=== PATIENT | female | born 1960 | race Caucasian/White ===

== ENCOUNTER 2017-06-16 19:20 | Emergency (ER) | payer SELFPAY ==
[~2017-06-16] VITALS: Ht 172.7 cm; Wt 109.3 kg
[2017-06-16] MEDS ORDERED: TIZA4CAP3 PO (19:59)
[2017-06-16] MEDS ORDERED: ONDA8TAB12 PO (19:59)
[2017-06-16] MEDS ORDERED: ORPHENADRINE CITRATE 60 MG/2 ML VIAL. IM ONE (20:00)
[2017-06-16] MEDS ORDERED: ONDANSETRON ODT 4 MG TAB.RAPDIS PO ONE (20:00)
--- NOTE | 2017-06-16 20:00 | PHYS DOC ---
Past History Past Medical History: Anxiety, Fibromyalgia Additional Past Medical Histor: Lyme's disease; fibromyalgia, diverticulitis Past Surgical History: Appendectomy, Hysterectomy, Tonsillectomy Smoking: Non-smoker, Quit Less Than 1 Year Alcohol Use: Rarely Drug Use: None Adult General Chief Complaint Chief Complaint: MULTIPLE COMPLAINTS HPI HPI Patient is a 56 year old female who presents with multiple complaints. The main complaint is mid back pain. Started today at 1700 PM. She has been "under a lot of stress" recently and moving her daughter. She was moving her daughter today when this pain started. No shortness of air, no fever, no cough. no chest pain. No abdominal pain. She had an episode just prior to arrival where "I became nauseated and then had stomach cramping and diarrhea.' She is dealing with "new colon issues so I don't know if it's related to that." No recent travel. No syncope or dizziness. Review of Systems Review of Systems Constitutional: Denies fever or chills Eyes: Denies change in visual acuity, redness, or eye pain HENT: Denies nasal congestion or sore throat Respiratory: Denies cough or shortness of breath Cardiovascular: No chest pain GI: Denies abdominal pain, POS nausea, NO vomiting, bloody stools; POS diarrhea x1 : Denies dysuria or hematuria Musculoskeletal: POS thoracic back pain; chronic joint pain Integument: Denies rash or skin lesions Neurologic: Denies headache, focal weakness or sensory changes All other systems were reviewed and found to be within normal limits, except as documented in this note. Current Medications Current Medications Current Medications Medications (Trade) Dose Ordered Sig/[facility] Start Time Stop Time Status Last Admin Dose Admin Ondansetron HCl (Zofran Odt) 4 mg 1X ONCE 06/16/17 20:00 06/16/17 20:01 Orphenadrine Citrate (Norflex) 60 mg 1X ONCE 06/16/17 20:00 06/16/17 20:01 Allergies Allergies Allergies Coded Allergies Type Severity Reaction Last Updated Verified Nitrofurantoin Macrocrystal Allergy Unknown 11/02/13 Yes guaifenesin Allergy Unknown 11/02/13 Yes hydromorphone HCl Allergy Unknown 11/02/13 Yes morphine Allergy Unknown 11/02/13 Yes nitrofurantoin Allergy Unknown 11/02/13 Yes paroxetine HCl Allergy Unknown 11/02/13 Yes Physical Exam Physical Exam Constitutional: Well developed, well nourished, no acute distress, non-toxic appearance. HENT: Normocephalic, atraumatic, bilateral external ears normal, oropharynx moist, no oral exudates, nose normal. Eyes: PERRLA, EOMI, conjunctiva normal, no discharge. Neck: Normal range of motion, no tenderness, supple, no stridor. Cardiovascular:Heart rate regular rhythm, no murmur Lungs & Thorax: Bilateral breath sounds clear to auscultation Abdomen: Bowel sounds normal, soft, no tenderness, no masses, no pulsatile masses. Skin: Warm, dry, no erythema, no rash. Back: POS tenderness along bilateral trapezius area and parathoracic muscle area ; no pinpoint tenderness to thoracic spine, no CVA tenderness. Extremities: No tenderness, no cyanosis, no clubbing, ROM intact, no edema. Neurologic: Alert and oriented X 3, normal motor function, normal sensory function, no focal deficits noted. Psychologic: Affect normal, judgement normal, mood normal. Current Patient Data Vital Signs Vital Signs Date Time Temp Pulse Resp B/P (MAP) Pulse Ox O2 Delivery O2 Flow Rate FiO2 06/16/17 19:33 98.2 96 18 96 EKG EKG EKG interpreted by myself at 1742 PM with NSR, Rate 78, non specific ST changes ; no STEMI. No change compared to EKG dated 11/02/16. Course & Med Decision Making Course & Med Decision Making Reviewed prior records. Evaluated patient. No evidence of acute cardiac event this time. Patient's findings are consistent with a thoracic muscle strain. Her diarrhea and nausea she states might just be related to her underlying bowel issues for which she stealing some extensive dietary changes to manage. Again she is under a lot of stress as well with family members so can be related to that as well she states. She did take an aspirin earlier "just to be safe". Again has had no other respiratory symptoms. Her blood pressures elevated here which he has been in the past visits. She states that happens when she gets under stress. She states she has a rechecked in the office it is "always normal ". However did advise her to have her blood pressure rechecked as it is borderline and your her personal physician deems it necessary she may need further evaluation on that. Dosed with Norflex IM here and Zofran ODT. She does not have any muscle relaxers at home to take. Will have her try outpatient muscle relaxers if obviously no change in his symptoms or worsening symptoms she is reevaluation immediately. PERC Criteria Assessment: Age > 50: YES HR > 100: No 02 < 95%: No H/o DVT/PE: No Recent trauma/surgery: No Hemoptysis No Exogenous Estrogen: No Unilateral Leg swelling: No Pretest probability > 15%: No Less than 2% risk of PE. No further work up is necessary; her only criteria is age. I have spoken with the patient and/or caregivers. I have explained the patient' s condition, diagnosis and treatment plan based on the information available to me at this time. I have answered the patient's and/or caregiver's questions and addressed any concerns. The patient and/or caregivers have as good an understanding of the patient's diagnosis, condition and treatment plan as can be expected at this point. The patient's condition is stable and appropriate for discharge from the emergency department. The patient will pursue further outpatient evaluation with the primary care physician or other designated or consulting physician as outlined in the discharge instructions. The patient and/or caregivers are agreeable to this plan of care and follow-up instructions have been explained in detail. The patient and/or caregivers have received these instructions in written format and have expressed an understanding of the discharge instructions. The patient and/or caregivers are aware that any significant change in condition or worsening of symptoms should prompt an immediate return to this or the closest emergency department or a call to 911. Taryn Disclaimer Dragon Disclaimer This electronic medical record was generated, in whole or in part, using a voice recognition dictation system. Departure Departure: Impression: Primary Impression: Acute thoracic myofascial strain Disposition: HOME, SELF-CARE Condition: STABLE Patient Instructions: Thoracic Strain Additional Instructions: Your blood pressure was slightly elevated here. You need to have you blood pressure reevaluated in 24-48 hrs. by you personal physician. If you develop any new symptoms or change in symptoms associated with you current complaint you need reevaluation immediately. Scripts Tizanidine Hcl (ZANAFLEX) 4 Mg Capsule 4 MG PO PRN Q8HRS Y for MUSCLE SPASMS, #20 CAP Prov: RONALD JOE MD 06/16/17 Ondansetron (ZOFRAN ODT) 8 Mg Tab.rapdis 8 MG PO Q6-8HRS, #10 Prov: RONALD JOE MD 06/16/17 Problem Qualifiers Primary Impression: Acute thoracic myofascial strain Encounter type: initial encounter Qualified Codes: S29.019A - Strain of muscle and tendon of unspecified wall of thorax, initial encounter RONALD JOE MD Jun 16, 2017 20:00
[2017-06-16 20:07] VITALS: BP 161/54
--- NOTE | 2017-06-17 00:47 | EKG ---
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
== END 2017-06-16 20:08 | disposition home or self-care (01) ==
LOC: ER 19:20
DX: S29.012A Strain of muscle and tendon of back wall of thorax, initial encounter (principal); M79.7 Fibromyalgia; F41.9 Anxiety disorder, unspecified; R19.7 Diarrhea, unspecified; Z87.891 Personal history of nicotine dependence; Z88.5 Allergy status to narcotic agent; Z88.8 Allergy status to other drugs, medicaments and biological substances; X58.XXXA Exposure to other specified factors, initial encounter; Y93.89 Activity, other specified; Y99.8 Other external cause status; Y92.89 Other specified places as the place of occurrence of the external cause
CPT/HCPCS: 93005; 96372; 99283; J2360; Q0162

== ENCOUNTER 2017-06-22 10:21 | Inpatient (IN) | payer SELFPAY ==
[~2017-06-22] VITALS: Ht 172.7 cm; Wt 124.3 kg
[~2017-06-22 10:21] MED LIST: ONDA8TAB12 PO; TIZA4CAP3 PO
--- NOTE | 2017-06-22 10:44 | PHYS DOC ---
Past History Past Medical History: Anxiety, Fibromyalgia Additional Past Medical Histor: Lyme's disease; fibromyalgia, diverticulitis Past Surgical History: Appendectomy, Hysterectomy, Tonsillectomy Smoking: Non-smoker, Quit Less Than 1 Year Alcohol Use: Rarely Drug Use: None Adult General Chief Complaint Chief Complaint: DIARRHEA HPI HPI Patient is a 56 year old F who presents with profuse watery diarrhea over the past 2 weeks. She states that she is having multiple bowel movements an hour and feels that it is particularly foul-smelling. She feels that her diarrhea is associated with mild abdominal cramping is worse with movement and palpation. She has had mild nausea and occasional vomiting however she has been a little hold down liquids. She has a history of diverticulitis which was diagnosed initially about 4 months ago. She states that she has moderate generalized weakness and is unable to do some of her normal daily tasks Review of Systems Review of Systems Constitutional: Negative except history of present illness Eyes: Denies change in visual acuity, redness, or eye pain [] HENT: Denies nasal congestion or sore throat [] Respiratory: Denies cough or shortness of breath [] Cardiovascular: No additional information not addressed in HPI [] GI: Negative except history of present illness : Denies dysuria or hematuria [] Musculoskeletal: Denies back pain or joint pain [] Integument: Denies rash or skin lesions [] Neurologic: Denies headache, focal weakness or sensory changes [] Endocrine: Denies polyuria or polydipsia [] All other systems were reviewed and found to be within normal limits, except as documented in this note. Family History Family History Noncontributory Current Medications Current Medications Medications reviewed Allergies Allergies Allergies Coded Allergies Type Severity Reaction Last Updated Verified Nitrofurantoin Macrocrystal Allergy Unknown 11/02/13 Yes guaifenesin Allergy Unknown 11/02/13 Yes hydromorphone HCl Allergy Unknown 11/02/13 Yes morphine Allergy Unknown 11/02/13 Yes nitrofurantoin Allergy Unknown 11/02/13 Yes paroxetine HCl Allergy Unknown 11/02/13 Yes Physical Exam Physical Exam Constitutional: Well developed, well nourished, no acute distress, non-toxic appearance. [] HENT: Normocephalic, atraumatic, bilateral external ears normal, oropharynx moist, no oral exudates, nose normal. [] Eyes: EOMI, conjunctiva normal, no discharge. [] Neck: Normal range of motion, no tenderness, supple, no stridor. [] Cardiovascular:Heart rate regular rhythm, no murmur [] Lungs & Thorax: Bilateral breath sounds clear to auscultation [] Abdomen: soft, no masses, no pulsatile masses. [] Mild generalized tenderness with hyperactive bowel sounds Skin: Warm, dry, no erythema, no rash. [] Back: No tenderness, no CVA tenderness. [] Extremities: No tenderness, no cyanosis, no clubbing, ROM intact, no edema. [] Neurologic: Alert and oriented X 3, normal motor function, normal sensory function, no focal deficits noted. [] Psychologic: Affect normal, judgement normal, mood normal. [] Current Patient Data Vital Signs Vital Signs Date Time Temp Pulse Resp B/P (MAP) Pulse Ox O2 Delivery O2 Flow Rate FiO2 06/22/17 10:34 98.1 88 22 96 Room Air Lab Results Laboratory Tests Test 06/22/17 11:04 White Blood Count 21.6 x10^3/uL (4.0-11.0) Red Blood Count 5.72 x10^6/uL (3.50-5.40) Hemoglobin 15.8 g/dL (12.0-15.5) Hematocrit 47.4 % (36.0-47.0) Mean Corpuscular Volume 83 fL (79-100) Mean Corpuscular Hemoglobin 28 pg (25-35) Mean Corpuscular Hemoglobin Concent 33 g/dL (31-37) Red Cell Distribution Width 13.6 % (11.5-14.5) Platelet Count 309 x10^3/uL (140-400) Neutrophils (%) (Auto) 51 % (31-73) Lymphocytes (%) (Auto) 12 % (24-48) Monocytes (%) (Auto) 4 % (0-9) Eosinophils (%) (Auto) 33 % (0-3) Basophils (%) (Auto) 1 % (0-3) Neutrophils # (Auto) 11.0 x10^3uL (1.8-7.7) Lymphocytes # (Auto) 2.6 x10^3/uL (1.0-4.8) Monocytes # (Auto) 0.8 x10^3/uL (0.0-1.1) Eosinophils # (Auto) 7.2 x10^3/uL (0.0-0.7) Basophils # (Auto) 0.1 x10^3/uL (0.0-0.2) Segmented Neutrophils % 48 % (35-66) Lymphocytes % 16 % (24-48) Monocytes % 5 % (0-10) Eosinophils % 25 % (0-5) Basophils % 1 % (0-3) Platelet Estimate Adequate (ADEQUATE) Sodium Level 140 mmol/L (136-145) Potassium Level 4.3 mmol/L (3.5-5.1) Chloride Level 103 mmol/L (98-107) Carbon Dioxide Level 30 mmol/L (21-32) Anion Gap 7 (6-14) Blood Urea Nitrogen 7 mg/dL (7-20) Creatinine 0.9 mg/dL (0.6-1.0) Estimated GFR (Cockcroft-Gault) 65.0 BUN/Creatinine Ratio 8 (6-20) Glucose Level 111 mg/dL (70-99) Calcium Level 9.7 mg/dL (8.5-10.1) Magnesium Level 2.1 mg/dL (1.8-2.4) Total Bilirubin 0.5 mg/dL (0.2-1.0) Aspartate Amino Transf (AST/SGOT) 22 U/L (15-37) Alanine Aminotransferase (ALT/SGPT) 28 U/L (14-59) Alkaline Phosphatase 158 U/L (46-116) Total Protein 7.5 g/dL (6.4-8.2) Albumin 3.9 g/dL (3.4-5.0) Albumin/Globulin Ratio 1.1 (1.0-1.7) Lipase 69 U/L (73-393) EKG EKG [] Course & Med Decision Making Course & Med Decision Making Pertinent Labs and Imaging studies reviewed. (See chart for details) Her symptoms are most consistent with C. difficile colitis Dragon Disclaimer Dragon Disclaimer This electronic medical record was generated, in whole or in part, using a voice recognition dictation system. Departure Departure: Impression: Primary Impression: Diarrhea of presumed infectious origin Additional Impression: Watery diarrhea Disposition: ADMITTED INPATIENT Condition: STABLE Referrals: SHANICE JAMESON (PCP) Problem Qualifiers BETTY CHAVEZ MD Jun 22, 2017 10:43
[2017-06-22] MEDS ORDERED: IV NORMAL SALINE 1,000ML 1,000 ML IV ONE (11:15)
[2017-06-22 11:24] LABS: BASO # 0.1 x10^3/uL (0.0-0.2); BASO % 1 % (0-3); EOS # 7.2 x10^3/uL (0.0-0.7); EOS % 33 % (0-3); HEMATOCRIT 47.4 % (36.0-47.0); HEMOGLOBIN 15.8 g/dL (12.0-15.5); LYMPH # 2.6 x10^3/uL (1.0-4.8); LYMPH % 12 % (24-48); MEAN CORPUSCULAR HEMOGLOBIN 28 pg (25-35); MEAN CORPUSCULAR HGB CONC 33 g/dL (31-37); MEAN CORPUSCULAR VOLUME 83 fL (79-100); MONO # 0.8 x10^3/uL (0.0-1.1); MONO % 4 % (0-9); NEUT % 51 % (31-73); PLATELET COUNT 309 x10^3/uL (140-400); RED BLOOD COUNT 5.72 x10^6/uL (3.50-5.40); RED CELL DISTRIBUTION WIDTH 13.6 % (11.5-14.5); WHITE BLOOD COUNT 21.6 x10^3/uL (4.0-11.0)
[2017-06-22 11:39] LABS: ALBUMIN 3.9 g/dL (3.4-5.0); ALBUMIN/GLOBULIN RATIO 1.1 (1.0-1.7); CALCIUM 9.7 mg/dL (8.5-10.1); CREATININE 0.9 mg/dL (0.6-1.0); MAGNESIUM 2.1 mg/dL (1.8-2.4); POTASSIUM 4.3 mmol/L (3.5-5.1); TOTAL BILIRUBIN 0.5 mg/dL (0.2-1.0); TOTAL PROTEIN 7.5 g/dL (6.4-8.2)
[2017-06-22 12:03] LABS: % BASOS 1 % (0-3); % EOS 25 % (0-5); % LYMPHS 16 % (24-48); % MONOS 5 % (0-10); % SEGS 48 % (35-66)
[2017-06-22 12:05] LABS: PLT ESTIMATE ADEQUATE (ADEQUATE)
[2017-06-22] MEDS ORDERED: IOHEXOL 240 MG/ML 50ML VIAL. ONE (12:21)
[2017-06-22] MEDS ORDERED: IOHEXOL 300 MG/ML 75 ML VIAL. IV ONE (12:30)
[2017-06-22] MEDS ORDERED: IOHEXOL 240 MG/ML 50ML VIAL. PO ONE (12:30)
[2017-06-22] MEDS ORDERED: ONDANSETRON PF 4 MG/2 ML VIAL. IV ONE (12:45)
--- NOTE | 2017-06-22 13:20 | RAD ---
CT abdomen and pelvis with contrast 06/22/2017 Clinical indication: Abdominal pain and diarrhea. Comparison: CT abdomen and pelvis 03/09/2013. Technique: Multiple CT images of the abdomen and pelvis were obtained following the intravenous administration of 75 mL Omnipaque 300. PQRS Compliance Statement: One or more of the following individualized dose reduction techniques were utilized for this examination: 1. Automated exposure control 2. Adjustment of the mA and/or kV according to patient size 3. Use of iterative reconstruction technique Findings: Abdomen pelvis: Heart size is normal. There is minimal linear atelectasis or scarring in the visualized lung bases. Liver, gallbladder, spleen, adrenal glands, pancreas and kidneys are unremarkable. The abdominal aorta is normal in caliber with mild aortoiliac calcified atheromatous disease. Major portal, splenic and visualized. Mesenteric veins are patent. No bowel obstruction. There are mild distal colonic diverticulosis with stranding and edema adjacent to a sigmoid diverticula series . No associated drainable pericolonic abscess. Prior hysterectomy. Vaginal cuff is unremarkable. No abdominal or pelvic lymphadenopathy. No abdominal or pelvic free fluid. There are no destructive osseous lesions. Impression: Acute sigmoid diverticulitis. No pneumoperitoneum or drainable pericolonic abscess.
[2017-06-22 14:50] VITALS: BP 145/50
[2017-06-22] MEDS ORDERED: CITA20TA9 PO (15:44)
[2017-06-22] MEDS ORDERED: LORA0.5T PO (15:44)
[2017-06-22] MEDS: ONDANSETRON PF 4 MG/2 ML VIAL. IV PRN ×3 (16:03→22:31)
[2017-06-22] MEDS: DICYCLOMINE HCL 10 MG CAPSULE PO PRN ×2 (16:28→23:24)
[2017-06-22] MEDS: LORazepam 0.5 MG TABLET PO SCH ×2 (16:28→20:36)
[2017-06-22] MEDS: IV NORMAL SALINE 1,000ML 1,000 ML IV SCH (16:30)
[2017-06-22 17:41] VITALS: BP 128/60
[2017-06-22] MEDS: FAMOTIDINE 20 MG/2 ML VIAL IVP SCH (20:35)
[2017-06-22] MEDS: CITALOPRAM 20 MG TABLET. PO SCH (20:36)
[2017-06-22] MEDS: LACTOBACILLUS RHAMNOSUS GG 1 CAPSULE. PO SCH (20:36)
[2017-06-22] MEDS ORDERED: LACTOBACILLUS ACIDOPH & BULGAR 1 TABLET. PO SCH (21:00)
[2017-06-22 23:00] VITALS: BP 124/58
[2017-06-23 04:30] VITALS: BP 128/50
[2017-06-23 06:21] LABS: ALBUMIN 3.1 g/dL (3.4-5.0); ALBUMIN/GLOBULIN RATIO 0.9 (1.0-1.7); CALCIUM 8.7 mg/dL (8.5-10.1); CREATININE 0.8 mg/dL (0.6-1.0); GFR 74.5; POTASSIUM 3.4 mmol/L (3.5-5.1); TOTAL BILIRUBIN 0.5 mg/dL (0.2-1.0); TOTAL PROTEIN 6.5 g/dL (6.4-8.2)
[2017-06-23 06:22] LABS: BASO # 0.1 x10^3/uL (0.0-0.2); BASO % 0 % (0-3); EOS # 7.9 x10^3/uL (0.0-0.7); EOS % 42 % (0-3); HEMATOCRIT 40.9 % (36.0-47.0); HEMOGLOBIN 13.7 g/dL (12.0-15.5); LYMPH # 3.4 x10^3/uL (1.0-4.8); LYMPH % 18 % (24-48); MEAN CORPUSCULAR HEMOGLOBIN 28 pg (25-35); MEAN CORPUSCULAR HGB CONC 34 g/dL (31-37); MEAN CORPUSCULAR VOLUME 83 fL (79-100); MONO # 0.9 x10^3/uL (0.0-1.1); MONO % 5 % (0-9); NEUT # 6.7 x10^3uL (1.8-7.7); NEUT % 35 % (31-73); PLATELET COUNT 257 x10^3/uL (140-400); RED BLOOD COUNT 4.95 x10^6/uL (3.50-5.40); RED CELL DISTRIBUTION WIDTH 13.9 % (11.5-14.5); WHITE BLOOD COUNT 18.9 x10^3/uL (4.0-11.0)
[2017-06-23] MEDS: ONDANSETRON PF 4 MG/2 ML VIAL. IV PRN (06:37)
[2017-06-23 06:57] LABS: BILIRUBIN,URINE NEG (NEG); CLARITY,URINE HAZY; COLOR,URINE AMBER; GLUCOSE,URINE NEG (NEG); NITRITE,URINE NEG (NEG); UROBILINOGEN,URINE 0.2 mg/dL (0.2 mg/dL)
[2017-06-23 06:58] LABS: BACTERIA,URINE FEW /HPF (0-FEW); GRANULAR CASTS,URINE OCC /HPF; HYALINE CASTS, URINE FEW /HPF; SQUAMOUS EPITHELIAL CELL,UR FEW /LPF
[2017-06-23] MEDS: LORazepam 0.5 MG TABLET PO SCH ×5 (07:09→22:03)
[2017-06-23 08:12] LABS: % EOS 46 % (0-5); % LYMPHS 18 % (24-48); % MONOS 2 % (0-10); % SEGS 31 % (35-66); PLT ESTIMATE ADEQUATE (ADEQUATE)
[2017-06-23 08:15] LABS: % ATYL 3 % (0-0)
[2017-06-23] MEDS: FAMOTIDINE 20 MG/2 ML VIAL IVP SCH ×2 (08:42→20:50)
[2017-06-23] MEDS: LACTOBACILLUS RHAMNOSUS GG 1 CAPSULE. PO SCH ×2 (08:43→20:50)
[2017-06-23] MEDS: DICYCLOMINE HCL 10 MG CAPSULE PO PRN (08:43)
[2017-06-23] MEDS ORDERED: CITALOPRAM 20 MG TABLET. PO SCH (09:00)
[2017-06-23] MEDS: IV NORMAL SALINE 1,000ML 1,000 ML IV SCH ×3 (09:06→22:15)
[2017-06-23 09:21] VITALS: BP 125/71
[2017-06-23 11:01] VITALS: BP 129/69
[2017-06-23] MEDS ORDERED: POTASSIUM CHLORIDE 20 MEQ TABLET.ER. PO ONE (12:00)
--- NOTE | 2017-06-23 14:03 | HP ---
ADMIT DATE: 06/22/2017 REASON FOR ADMISSION: Abdominal pain/diverticulitis. HISTORY OF PRESENT ILLNESS: This is a 56-year-old female who was complaining of a several day history of severe diarrhea, nausea and weakness. She felt that she was too weak to be discharged home from the Emergency Room and CAT scan did indicate diverticulitis. The patient has been working very hard to keep up with her fluids. PAST MEDICAL HISTORY: Fibromyalgia, Lyme disease, interstitial cystitis. MEDICATIONS: Celexa, ibuprofen and was on tramadol, but this is agree with her. PAST SURGICAL HISTORY: Hysterectomy in her 20s, appendectomy in her teens, and tonsillectomy. SOCIAL HISTORY: No tobacco, no alcohol or drugs. 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 REVIEW OF SYSTEMS: Basically lower abdominal cramping and diarrhea, some chills, possible fever, otherwise negative. OBJECTIVE: VITAL SIGNS: T-max 98.8, blood pressure 129/69, pulse 58, respirations 20, O2 sat 97% on room air. Height 68 inches, weight 274 pounds. HEENT: The patient's hearing is normal. Her eyes are clear. Nose is patent. Throat was clear. Tongue slightly dry. NECK: Supple. LUNGS: Clear to auscultation. CARDIOVASCULAR: Regular rhythm and rate. ABDOMEN: Soft, bowel sounds are diminished. She does have some lower middle quadrant tenderness, but not severe. No rebound. EXTREMITIES: Without edema. LABORATORY DATA: Her white blood cell count has decreased to 18.9 from 21.6. She has a lot of eosinophils. Her potassium this morning is 3.4, albumin is 3.1. Urinalysis: Specific gravity 1.0254 and 1-4 white cells, 6-10 red cells. C. diff was negative. MRSA screen negative. CAT scan of the abdomen and pelvis showed an acute sigmoid diverticulitis. ASSESSMENT: 1. Acute sigmoid diverticulitis. 2. Eosinophilia, questionable etiology. 3. Hypokalemia. 4. Mild dehydration, now resolved, normalizing of her hemoglobin and hematocrit. 5. Fibromyalgia. 6. History of Lyme disease. 7. Interstitial cystitis. PLAN: IV fluids, clear liquid diet, metronidazole, ceftriaxone, Cipro, does not agree with her, up out of bed today and will continue toward discharge. TRI WOODS DO DR: Griffin JOB#: [id number] / [id number]
[2017-06-23 15:20] VITALS: BP 136/60
[2017-06-23 20:45] VITALS: BP 113/71
[2017-06-23] MEDS ORDERED: PROMETHAZINE 12.5 MG in IV NORMAL SALINE 50ML 50 ML IV PRN (20:45)
[2017-06-23] MEDS: CITALOPRAM 20 MG TABLET. PO SCH (20:51)
[2017-06-23 23:27] VITALS: BP 129/64
[2017-06-24] MEDS: LORazepam 0.5 MG TABLET PO SCH (05:43)
[2017-06-24] MEDS ORDERED: PROMETHAZINE 25 MG/ML VIAL IV ONE (05:49)
[2017-06-24 06:07] VITALS: BP 104/68
[2017-06-24 06:25] LABS: BASO # 0.1 x10^3/uL (0.0-0.2); BASO % 0 % (0-3); EOS # 7.1 x10^3/uL (0.0-0.7); EOS % 38 % (0-3); HEMATOCRIT 43.2 % (36.0-47.0); HEMOGLOBIN 14.6 g/dL (12.0-15.5); LYMPH # 4.3 x10^3/uL (1.0-4.8); LYMPH % 23 % (24-48); MEAN CORPUSCULAR HEMOGLOBIN 28 pg (25-35); MEAN CORPUSCULAR HGB CONC 34 g/dL (31-37); MEAN CORPUSCULAR VOLUME 82 fL (79-100); MONO # 0.8 x10^3/uL (0.0-1.1); MONO % 4 % (0-9); NEUT # 6.7 x10^3uL (1.8-7.7); NEUT % 35 % (31-73); PLATELET COUNT 277 x10^3/uL (140-400); RED BLOOD COUNT 5.25 x10^6/uL (3.50-5.40); RED CELL DISTRIBUTION WIDTH 13.4 % (11.5-14.5); WHITE BLOOD COUNT 18.9 x10^3/uL (4.0-11.0)
[2017-06-24 06:41] LABS: ALBUMIN 3.5 g/dL (3.4-5.0); ALBUMIN/GLOBULIN RATIO 0.9 (1.0-1.7); CALCIUM 9.4 mg/dL (8.5-10.1); CREATININE 0.8 mg/dL (0.6-1.0); GFR 74.5; MAGNESIUM 2.1 mg/dL (1.8-2.4); POTASSIUM 3.8 mmol/L (3.5-5.1); TOTAL BILIRUBIN 0.4 mg/dL (0.2-1.0); TOTAL PROTEIN 7.3 g/dL (6.4-8.2)
[2017-06-24] MEDS: IV NORMAL SALINE 1,000ML 1,000 ML IV SCH (08:15)
[2017-06-24] MEDS ORDERED: AMOX1TAB61 PO (08:42)
[2017-06-24] MEDS: LACTOBACILLUS RHAMNOSUS GG 1 CAPSULE. PO SCH (09:00)
[2017-06-24] MEDS: FAMOTIDINE 20 MG/2 ML VIAL IVP SCH (09:00)
[2017-06-24] MEDS ORDERED: METR500T8 PO (09:37)
[2017-06-24] MEDS ORDERED: PROM12.56 PO (09:37)
[2017-06-24] MEDS ORDERED: DICY10CA53 PO (09:37)
[2017-06-24] MEDS ORDERED: SULF1TAB24 PO (09:37)
--- NOTE | 2017-06-24 10:16 | PDOC3 ---
Discharge Summary Visit Information Date of Admission: Jun 22, 2017 Date of Discharge: Jun 24, 2017 Admitting Diagnosis Comments ENT: 1. Acute sigmoid diverticulitis. 2. Eosinophilia, questionable etiology. 3. Hypokalemia. 4. Mild dehydration, now resolved, normalizing of her hemoglobin and hematocrit. 5. Fibromyalgia. 6. History of Lyme disease. 7. Interstitial cystitis. 8. MULTIPLE DRUG SENSITIVITIES Final Diagnosis Problems Medical Problems: (1) Diarrhea of presumed infectious origin Status: Acute (2) Watery diarrhea Status: Acute 1.sigmoid diverticulitis. 2. Eosinophilia, questionable etiology. 3. Hypokalemia. 4. Mild dehydration, now resolved, normalizing of her hemoglobin and hematocrit. 5. Fibromyalgia. 6. History of Lyme disease. 7. Interstitial cystitis. 8 MULTIPLE DRUG SENSITIVITIES Problems: Brief Hospital Course Allergies Allergies Coded Allergies Type Severity Reaction Last Updated Verified Nitrofurantoin Macrocrystal Allergy Intermediate 06/24/17 Yes guaifenesin Allergy Intermediate 06/24/17 Yes hydromorphone HCl Allergy Intermediate 06/24/17 Yes morphine Allergy Intermediate 06/24/17 Yes nitrofurantoin Allergy Intermediate 06/24/17 Yes paroxetine HCl Allergy Intermediate 06/24/17 Yes Vital Signs Vital Signs Date Time Temp Pulse Resp B/P (MAP) Pulse Ox O2 Delivery O2 Flow Rate FiO2 06/24/17 08:00 Room Air 06/24/17 06:07 97.8 62 18 104/68 (80) 94 Lab Results Laboratory Tests Test 06/22/17 10:53 06/22/17 11:04 06/22/17 16:14 06/23/17 05:57 Clostridium difficile Toxin (PCR) Negative (Negative) White Blood Count 21.6 x10^3/uL (4.0-11.0) 18.9 x10^3/uL (4.0-11.0) Red Blood Count 5.72 x10^6/uL (3.50-5.40) 4.95 x10^6/uL (3.50-5.40) Hemoglobin 15.8 g/dL (12.0-15.5) 13.7 g/dL (12.0-15.5) Hematocrit 47.4 % (36.0-47.0) 40.9 % (36.0-47.0) Mean Corpuscular Volume 83 fL (79-100) 83 fL (79-100) Mean Corpuscular Hemoglobin 28 pg (25-35) 28 pg (25-35) Mean Corpuscular Hemoglobin Concent 33 g/dL (31-37) 34 g/dL (31-37) Red Cell Distribution Width 13.6 % (11.5-14.5) 13.9 % (11.5-14.5) Platelet Count 309 x10^3/uL (140-400) 257 x10^3/uL (140-400) Neutrophils (%) (Auto) 51 % (31-73) 35 % (31-73) Lymphocytes (%) (Auto) 12 % (24-48) 18 % (24-48) Monocytes (%) (Auto) 4 % (0-9) 5 % (0-9) Eosinophils (%) (Auto) 33 % (0-3) 42 % (0-3) Basophils (%) (Auto) 1 % (0-3) 0 % (0-3) Neutrophils # (Auto) 11.0 x10^3uL (1.8-7.7) 6.7 x10^3uL (1.8-7.7) Lymphocytes # (Auto) 2.6 x10^3/uL (1.0-4.8) 3.4 x10^3/uL (1.0-4.8) Monocytes # (Auto) 0.8 x10^3/uL (0.0-1.1) 0.9 x10^3/uL (0.0-1.1) Eosinophils # (Auto) 7.2 x10^3/uL (0.0-0.7) 7.9 x10^3/uL (0.0-0.7) Basophils # (Auto) 0.1 x10^3/uL (0.0-0.2) 0.1 x10^3/uL (0.0-0.2) Segmented Neutrophils % 48 % (35-66) 31 % (35-66) Lymphocytes % 16 % (24-48) 18 % (24-48) Monocytes % 5 % (0-10) 2 % (0-10) Eosinophils % 25 % (0-5) 46 % (0-5) Basophils % 1 % (0-3) Platelet Estimate Adequate (ADEQUATE) Adequate (ADEQUATE) Sodium Level 140 mmol/L (136-145) 141 mmol/L (136-145) Potassium Level 4.3 mmol/L (3.5-5.1) 3.4 mmol/L (3.5-5.1) Chloride Level 103 mmol/L (98-107) 107 mmol/L (98-107) Carbon Dioxide Level 30 mmol/L (21-32) 25 mmol/L (21-32) Anion Gap 7 (6-14) 9 (6-14) Blood Urea Nitrogen 7 mg/dL (7-20) 7 mg/dL (7-20) Creatinine 0.9 mg/dL (0.6-1.0) 0.8 mg/dL (0.6-1.0) Estimated GFR (Cockcroft-Gault) 65.0 74.5 BUN/Creatinine Ratio 8 (6-20) 9 (6-20) Glucose Level 111 mg/dL (70-99) 92 mg/dL (70-99) Calcium Level 9.7 mg/dL (8.5-10.1) 8.7 mg/dL (8.5-10.1) Magnesium Level 2.1 mg/dL (1.8-2.4) 2.0 mg/dL (1.8-2.4) Total Bilirubin 0.5 mg/dL (0.2-1.0) 0.5 mg/dL (0.2-1.0) Aspartate Amino Transf (AST/SGOT) 22 U/L (15-37) 20 U/L (15-37) Alanine Aminotransferase (ALT/SGPT) 28 U/L (14-59) 32 U/L (14-59) Alkaline Phosphatase 158 U/L (46-116) 147 U/L (46-116) Total Protein 7.5 g/dL (6.4-8.2) 6.5 g/dL (6.4-8.2) Albumin 3.9 g/dL (3.4-5.0) 3.1 g/dL (3.4-5.0) Albumin/Globulin Ratio 1.1 (1.0-1.7) 0.9 (1.0-1.7) Lipase 69 U/L (73-393) Nasal Screen MRSA (PCR) Negative (Negative) Atypical Lymphocytes % (Manual) 3 % (0-0) Test 06/23/17 06:10 06/24/17 05:45 Urine Collection Type Unknown Urine Color Alecia Urine Clarity Hazy Urine pH 5.0 Urine Specific [place] 1.025 Urine Protein Neg (NEG-TRACE) Urine Glucose (UA) Neg mg/dL (NEG) Urine Ketones (Stick) Neg mg/dL (NEG) Urine Blood Mod (NEG) Urine Nitrite Neg (NEG) Urine Bilirubin Neg (NEG) Urine Urobilinogen Dipstick 0.2 mg/dL (0.2 mg/dL) Urine Leukocyte Esterase Trace (NEG) Urine RBC 6-10 /HPF (0-2) Urine WBC 1-4 /HPF (0-4) Urine Squamous Epithelial Cells Few /LPF Urine Bacteria Few /HPF (0-FEW) Urine Hyaline Casts Few /HPF Urine Granular Casts Occ /HPF Urine Mucus Slight /LPF White Blood Count 18.9 x10^3/uL (4.0-11.0) Red Blood Count 5.25 x10^6/uL (3.50-5.40) Hemoglobin 14.6 g/dL (12.0-15.5) Hematocrit 43.2 % (36.0-47.0) Mean Corpuscular Volume 82 fL (79-100) Mean Corpuscular Hemoglobin 28 pg (25-35) Mean Corpuscular Hemoglobin Concent 34 g/dL (31-37) Red Cell Distribution Width 13.4 % (11.5-14.5) Platelet Count 277 x10^3/uL (140-400) Neutrophils (%) (Auto) 35 % (31-73) Lymphocytes (%) (Auto) 23 % (24-48) Monocytes (%) (Auto) 4 % (0-9) Eosinophils (%) (Auto) 38 % (0-3) Basophils (%) (Auto) 0 % (0-3) Neutrophils # (Auto) 6.7 x10^3uL (1.8-7.7) Lymphocytes # (Auto) 4.3 x10^3/uL (1.0-4.8) Monocytes # (Auto) 0.8 x10^3/uL (0.0-1.1) Eosinophils # (Auto) 7.1 x10^3/uL (0.0-0.7) Basophils # (Auto) 0.1 x10^3/uL (0.0-0.2) Sodium Level 140 mmol/L (136-145) Potassium Level 3.8 mmol/L (3.5-5.1) Chloride Level 105 mmol/L (98-107) Carbon Dioxide Level 28 mmol/L (21-32) Anion Gap 7 (6-14) Blood Urea Nitrogen 10 mg/dL (7-20) Creatinine 0.8 mg/dL (0.6-1.0) Estimated GFR (Cockcroft-Gault) 74.5 BUN/Creatinine Ratio 13 (6-20) Glucose Level 91 mg/dL (70-99) Calcium Level 9.4 mg/dL (8.5-10.1) Magnesium Level 2.1 mg/dL (1.8-2.4) Total Bilirubin 0.4 mg/dL (0.2-1.0) Aspartate Amino Transf (AST/SGOT) 20 U/L (15-37) Alanine Aminotransferase (ALT/SGPT) 29 U/L (14-59) Alkaline Phosphatase 152 U/L (46-116) Total Protein 7.3 g/dL (6.4-8.2) Albumin 3.5 g/dL (3.4-5.0) Albumin/Globulin Ratio 0.9 (1.0-1.7) Brief Hospital Course Ms. Pastor is a 56 old [sex] who presented with [ ] HISTORY OF PRESENT ILLNESS: This is a 56-year-old female who was complaining of a several day history of severe diarrhea, nausea and weakness. She felt that she was too weak to be discharged home from the Emergency Room and CAT scan did indicate diverticulitis. The patient has been working very hard to keep up with her fluids. SHE WAS ONLY MILDLY DEHYDRATED. DUE TO HER MULTIPLE DRUG SENSITIVITIES SHE WS TREATED WITH CEFTRIAXONE. SHE WAS ABLE TO TOLERATED THE FLAGYL BUT IT DID GIVE HER CRAMPS. HER DIARRHEA ESSENTIALLY RESOLVED PRIOR TO DISCHARGE AND SHE WAS ABLE TO TOLERATE FULL LIQUIDS AND A SOFT DIET. PAIN DIMINISHED ON HER PE Discharge Information Condition at Discharge: Improved Disposition/Orders: D/C to Home Dischare Medications Current Medications Sodium Chloride 1,000 ml @ 1,000 mls/hr 1X ONCE IV Last administered on 06/22t 11:15; Start 06/22/17 at 11:15; Stop 06/22/17 at 12:14; Status DC Ondansetron HCl (Zofran) 4 mg 1X ONCE IV Last administered on 06/22/17 12:32 ; Start 06/22/17 at 12:45; Stop 06/22/17 at 12:46; Status DC Metronidazole 100 ml @ 100 mls/hr 1X ONCE IV Last administered on 06/22/17 12:42; Start 06/22/17 at 12:45; Stop 06/22/17 at 13:44; Status DC Iohexol (Omnipaque 240 Mg/ml) 50 ml 1X ONCE PO ; Start 06/22/17 at 12:30; Stop 06/22/17 at 12:31; Status DC Iohexol (Omnipaque 300 Mg/ml) 75 ml 1X ONCE IV Last administered on 12:59; Start 06/22/17 at 12:30; Stop 06/22/17 at 12:31; Status DC Iohexol (Omnipaque 240 Mg/ml) 50 ml STK-MED ONCE .ROUTE ; Start 06/22/17 at 12: 21; Stop 06/22/17 at 12:22; Status DC Ondansetron HCl (Zofran) 4 mg PRN Q4HRS PRN IV NAUSEA/VOMITING Last administered on 06/23/17 06:37; Start 06/22/17 at 13:30; Stop 06/23/17 at 13 :29; Status DC Ceftriaxone Sodium 1 gm/ Sodium Chloride 50 ml @ 100 mls/hr Q24H IV ; Start at 14:30; Stop 06/22/17 at 14:30; Status DC Metronidazole 100 ml @ 100 mls/hr Q8HRS IV Last administered on 06/24/17 05: 43; Start 06/22/17 at 14:30 Ceftriaxone Sodium 1 gm/ Dextrose 50 ml @ 100 mls/hr Q24H IV ; Start 06/22/17 at 14:30; Stop 06/22/17 at 14:30; Status DC Ceftriaxone Sodium 1 gm/ Dextrose 50 ml @ 100 mls/hr Q24H IV Last administered on 06/23/17 15:27; Start 06/22/17 at 15:00 Famotidine (Pepcid Vial) 20 mg BID IVP Last administered on 06/24/17 09:00; Start 06/22/17 at 21:00 Lactobacillus Acidophilus (Bacid, Celia-Bid) 2 tab BID PO ; Start 06/22/17 at 21 :00; Stop 06/22/17 at 21:00; Status DC Dicyclomine HCl (Bentyl) 10 mg PRN Q6HRS PRN PO CRAMPING Last administered on 06/23/17 08:43; Start 06/22/17 at 16:15 Sodium Chloride 1,000 ml @ 100 mls/hr Q10H IV Last administered on 06/22/17 16:30; Start 06/22/17 at 16:15 Lactobacillus Rhamnosus (Culturelle) 1 cap BID PO Last administered on 09:00; Start 06/22/17 at 21:00 Citalopram Hydrobromide (CeleXA) 20 mg DAILY PO ; Start 06/23/17 at 09:00; Stop 06/23/17 at 09:00; Status DC Lorazepam (Ativan) 0.5 mg QID PO Last administered on 06/23/17 07:09; Start 06/22/17 at 17:00; Stop 06/23/17 at 07:15; Status DC Citalopram Hydrobromide (CeleXA) 20 mg HS PO Last administered on 06/23/17 20 :51; Start 06/22/17 at 21:00 Lorazepam (Ativan) 0.5 mg [id number] PO Last administered on 06/24/17 05:43; Start 06/23/17 at 07:45 Potassium Chloride (Klor-Con) 40 meq 1X ONCE PO Last administered on 11:59; Start 06/23/17 at 12:00; Stop 06/23/17 at 12:01; Status DC Promethazine HCl 12.5 mg/Sodium Chloride 50.5 ml @ 101 mls/hr PRN Q6HRS PRN IV NAUSEA/VOMITING Last administered on 06/24/17 05:53; Start 06/23/17 at 20: 45 Promethazine HCl (Phenergan) 25 mg STK-MED ONCE IV ; Start 06/24/17 at 05:49; Stop 06/24/17 at 05:50; Status DC Active Scripts Active Promethazine Hcl 12.5 Mg Tablet 1 Tab PO Q6HRS Metronidazole 500 Mg Tablet 1 Tab PO TID Bactrim Ds Tablet (Sulfamethoxazole/Trimethoprim) 1 Each Tablet 1 Tab PO BID Bentyl (Dicyclomine Hcl) 10 Mg Capsule 1 Cap PO TID Reported Celexa (Citalopram Hydrobromide) 20 Mg Tablet 1 Tab PO DAILY Lorazepam 0.5 Mg Tablet 1 Tab PO QID Patient Instructions Patient Instuctions DISCHARGED ON AND DUE TO HER DRUG SENSITIVITIES. SHE WAS ADVISED ON HER EOSINOPHILIA AND THE NEED TO HAVE SOME TESTING AN OUTPATIENT. ADVISED TO CONTINUE THE PROBIOTIC. TRI WOODS DO Jun 24, 2017 10:16
== END 2017-06-24 10:15 | disposition home or self-care (01) | DRG 392 ==
LOC: ER 10:21 → ICU 13:49 → 1 SOUTH 06-23 07:34
PROVIDERS: ADMIT Family Medicine; ATTEND Family Medicine
DX: A09 Infectious gastroenteritis and colitis, unspecified (principal); D72.1 Eosinophilia; K57.32 Diverticulitis of large intestine without perforation or abscess without bleeding; N30.10 Interstitial cystitis (chronic) without hematuria; E86.0 Dehydration; E87.6 Hypokalemia; M79.7 Fibromyalgia; F41.9 Anxiety disorder, unspecified; Z79.899 Other long term (current) drug therapy; Z90.49 Acquired absence of other specified parts of digestive tract; Z90.710 Acquired absence of both cervix and uterus; Z88.8 Allergy status to other drugs, medicaments and biological substances; Z86.19 Personal history of other infectious and parasitic diseases
CPT/HCPCS: 36415; 74177; 80053; 81001; 83690; 83735; 85007; 85025; 87324; 87641; 96361; 96365; 96375; J0696; J2405; J2550; J3490; Q9967; S0028; 99285-25; J7030

== ENCOUNTER 2017-07-03 02:01 | Emergency (ER) | payer SELFPAY ==
[~2017-07-03] VITALS: Ht 172.7 cm; Wt 122.5 kg
[~2017-07-03 02:01] MED LIST changes: +AMOX1TAB61 PO; +CITA20TA9 PO; +DICY10CA53 PO; +LORA0.5T PO; +METR500T8 PO; +PROM12.56 PO; +SULF1TAB24 PO
--- NOTE | 2017-07-03 02:03 | ED.ADGEN ---
Past History Past Medical History: Diverticulitis, Other Additional Past Medical Histor: Lyme's disease; fibromyalgia, diverticulitis Past Surgical History: No Surgical History Smoking: Non-smoker, Quit Less Than 1 Year Alcohol Use: Rarely Drug Use: None Adult General Chief Complaint Chief Complaint " I was here the other day.. got admitted for bad diarrhea I got from eating [place]..".. But I got discharge.. and still on Flagy... and also taking pro- antibiotics...".. but to night I am short of breath.. and still have some abdomen cramping..." HPI HPI Patient is a 56 year old female who presents with above hx and complaints of dyspnea and general malaise and myalgia. Patient denies any immunosuppression. Patient denies any history of specific ill contacts. Patient does continue to smoke. Patient has a past history of Lyme disease, diverticulitis, Fibromyalgia and multiple drug allergies. Pt. reports she is still taking the flagyl.. ,Pt. states feelings of shortness of breath was just a couple minutes. Pt . denies hx of coagulopathy. Not on control. Review of Systems Review of Systems Constitutional: Denies fever or chills [] Eyes: Denies change in visual acuity, redness, or eye pain [] HENT: Denies nasal congestion or sore throat [] Respiratory: Hx of shortness of breath [] Cardiovascular: No additional information not addressed in HPI [] GI: Hx. of abdominal pain, nausea, diarrhea [] : Denies dysuria or hematuria [] Musculoskeletal: Denies back pain or joint pain [] Integument: Denies rash or skin lesions [] Neurologic: Denies headache, focal weakness or sensory changes [] Endocrine: Denies polyuria or polydipsia [] All other systems were reviewed and found to be within normal limits, except as documented in this note. Family History Family History Non-contributory Current Medications Current Medications Current Medications Medications (Trade) Dose Ordered Sig/Kiran Start Time Stop Time Status Last Admin Dose Admin Aspirin (Deonte Aspirin) 325 mg 1X ONCE 07/03/17 03:30 07/03/17 03:31 DC 07/03/17 03:29 325 MG Info (Do NOT chart on this entry -- for MONITORING) 1 each PRN DAILY PRN 07/03/17 04:15 07/05/17 04:14 Iohexol (Omnipaque 300 Mg/ml) 75 ml 1X ONCE 07/03/17 04:30 07/03/17 04:32 DC 07/03/17 04:31 75 ML Ondansetron HCl (Zofran) 8 mg 1X ONCE 07/03/17 05:00 07/03/17 05:01 DC 07/03/17 04:38 8 MG See Nursing for home meds Allergies Allergies Allergies Coded Allergies Type Severity Reaction Last Updated Verified Nitrofurantoin Macrocrystal Allergy Intermediate 06/24/17 Yes guaifenesin Allergy Intermediate 06/24/17 Yes hydromorphone HCl Allergy Intermediate 06/24/17 Yes morphine Allergy Intermediate 06/24/17 Yes nitrofurantoin Allergy Intermediate 06/24/17 Yes paroxetine HCl Allergy Intermediate 06/24/17 Yes Physical Exam Physical Exam Constitutional:mild distress, non-toxic appearance. [] HENT: Normocephalic, atraumatic, bilateral external ears normal, oropharynx moist, no oral exudates, nose normal. [] Eyes: PERRLA, EOMI, conjunctiva normal, no discharge. [] Neck: Normal range of motion, no tenderness, supple, no stridor. [] Cardiovascular:Heart rate regular rhythm, no murmur [] Lungs & Thorax: Bilateral breath sounds equal at apex on auscultation [] Abdomen: Bowel sounds hyperactive , soft, no tenderness, no masses, no pulsatile masses. Obese. Skin: Warm, dry, no erythema, no rash. [] Back: No tenderness, no CVA tenderness. [] Extremities: No tenderness, no cyanosis, no clubbing, ROM intact, no edema. No psoas or heel tap. No cording appreciated. Neurologic: Alert and oriented X 3, normal motor function, normal sensory function, no focal deficits noted. [] Psychologic: Affect anxious, judgement normal, mood normal. [] Current Patient Data Vital Signs Vital Signs Date Time Temp Pulse Resp B/P (MAP) Pulse Ox O2 Delivery O2 Flow Rate FiO2 07/03/17 02:38 97.8 74 16 98 Lab Results Laboratory Tests Test 07/03/17 02:25 07/03/17 03:00 White Blood Count 10.7 x10^3/uL (4.0-11.0) Red Blood Count 5.40 x10^6/uL (3.50-5.40) Hemoglobin 15.1 g/dL (12.0-15.5) Hematocrit 45.3 % (36.0-47.0) Mean Corpuscular Volume 84 fL (79-100) Mean Corpuscular Hemoglobin 28 pg (25-35) Mean Corpuscular Hemoglobin Concent 33 g/dL (31-37) Red Cell Distribution Width 14.2 % (11.5-14.5) Platelet Count 302 x10^3/uL (140-400) Neutrophils (%) (Auto) 59 % (31-73) Lymphocytes (%) (Auto) 27 % (24-48) Monocytes (%) (Auto) 6 % (0-9) Eosinophils (%) (Auto) 7 % (0-3) H Basophils (%) (Auto) 1 % (0-3) Neutrophils # (Auto) 6.3 x10^3uL (1.8-7.7) Lymphocytes # (Auto) 2.9 x10^3/uL (1.0-4.8) Monocytes # (Auto) 0.7 x10^3/uL (0.0-1.1) Eosinophils # (Auto) 0.7 x10^3/uL (0.0-0.7) Basophils # (Auto) 0.1 x10^3/uL (0.0-0.2) Prothrombin Time 10.6 SEC (9.4-11.4) Prothrombin Time INR 1.0 (0.9-1.1) PTT 25 SEC (23-33) D-Dimer (Danni) 0.95 mg/L (0.00-0.50) H Sodium Level 144 mmol/L (136-145) Potassium Level 3.9 mmol/L (3.5-5.1) Chloride Level 107 mmol/L (98-107) Carbon Dioxide Level 28 mmol/L (21-32) Anion Gap 9 (6-14) Blood Urea Nitrogen 18 mg/dL (7-20) Creatinine 0.8 mg/dL (0.6-1.0) Estimated GFR (Cockcroft-Gault) 74.5 BUN/Creatinine Ratio 23 (6-20) H Glucose Level 116 mg/dL (70-99) H Calcium Level 9.3 mg/dL (8.5-10.1) Magnesium Level 2.1 mg/dL (1.8-2.4) Total Bilirubin 0.3 mg/dL (0.2-1.0) Direct Bilirubin 0.1 mg/dL (0.0-0.2) Aspartate Amino Transferase (AST) 34 U/L (15-37) Alanine Aminotransferase (ALT) 85 U/L (14-59) H Alkaline Phosphatase 105 U/L (46-116) Creatine Kinase 35 U/L (26-192) Creatine Kinase MB (Mass) < 0.5 ng/mL (0.0-3.6) Creatine Kinase MB Relative Index 1.4 % (0-4) Troponin I Quantitative < 0.017 ng/mL (0-0.055) [id number]-Type Natriuretic Peptide 42 pg/mL (0-124) Total Protein 7.2 g/dL (6.4-8.2) Albumin 3.8 g/dL (3.4-5.0) Albumin/Globulin Ratio 1.1 (1.0-1.7) Lipase 125 U/L (73-393) Urine Collection Type Void Urine Color Yellow Urine Clarity Clear Urine pH 6.5 Urine Specific [place] <=1.005 Urine Protein Neg (NEG-TRACE) Urine Glucose (UA) Neg mg/dL (NEG) Urine Ketones (Stick) Neg mg/dL (NEG) Urine Blood Small (NEG) Urine Nitrite Neg (NEG) Urine Bilirubin Neg (NEG) Urine Urobilinogen Dipstick 0.2 mg/dL (0.2 mg/dL) Urine Leukocyte Esterase Neg (NEG) Urine RBC 1-2 /HPF (0-2) Urine WBC 0 /HPF (0-4) Urine Squamous Epithelial Cells Few /LPF Urine Bacteria Few /HPF (0-FEW) Urine Opiates Screen Neg (NEG) Urine Methadone Screen Neg (NEG) Urine Barbiturates Neg (NEG) Urine Phencyclidine Screen Neg (NEG) Urine Amphetamine/Methamphetamine Neg (NEG) Urine Benzodiazepines Screen Neg (NEG) Urine Cocaine Screen Neg (NEG) Urine Cannabinoids Screen Neg (NEG) Urine Ethyl Alcohol Neg (NEG) Microbiology 07/03/17 Wet Prep - Final, Complete EKG EKG My interpretation of EKG shows sinus 61, nonspecific T changes. No STEMI.[] Radiology/Procedures Radiology/Procedures CT - no large PE. nodules- small , CXR = atele.[] Course & Med Decision Making Course & Med Decision Making Pertinent Labs and Imaging studies reviewed. (See chart for details). Keep follow up with primary. Daily ASA or baby ASA. Meds as previously directed. Stop smoking. [] Final Impression Final Impression 1. Dyspnea 2. Abdomen Pain 3. Hx. of Diarrhea[] Problems: Dragon Disclaimer Dragon Disclaimer This electronic medical record was generated, in whole or in part, using a voice recognition dictation system. SAAD MOURA MD Jul 03, 2017 02:03
[2017-07-03 02:38] VITALS: BP 155/81
[2017-07-03 03:28] LABS: BASO # 0.1 x10^3/uL (0.0-0.2); BASO % 1 % (0-3); EOS # 0.7 x10^3/uL (0.0-0.7); EOS % 7 % (0-3); HEMATOCRIT 45.3 % (36.0-47.0); HEMOGLOBIN 15.1 g/dL (12.0-15.5); LYMPH # 2.9 x10^3/uL (1.0-4.8); LYMPH % 27 % (24-48); MEAN CORPUSCULAR HEMOGLOBIN 28 pg (25-35); MEAN CORPUSCULAR HGB CONC 33 g/dL (31-37); MEAN CORPUSCULAR VOLUME 84 fL (79-100); MONO # 0.7 x10^3/uL (0.0-1.1); MONO % 6 % (0-9); NEUT # 6.3 x10^3uL (1.8-7.7); NEUT % 59 % (31-73); PLATELET COUNT 302 x10^3/uL (140-400); RED CELL DISTRIBUTION WIDTH 14.2 % (11.5-14.5); WHITE BLOOD COUNT 10.7 x10^3/uL (4.0-11.0)
--- NOTE | 2017-07-03 03:28 | RAD ---
INDICATION: Dyspnea, loose stools. Recent diverticulitis flare up. COMPARISON: November 02, 2013 and March 09, 2013 IMPRESSION: CHEST: 2 views obtained. No definite focal airspace consolidation or pulmonary edema. Cardiac silhouette unremarkable. Mild degenerative changes spine. ABDOMEN: 3 views obtained. Air scattered throughout large and small bowel in grossly nonobstructive pattern. There are some calcifications within the left hemipelvis but these were also present on prior therefore could be from phleboliths. Electronically signed by: Jamie Gonsalez MD (07/03/2017 3:24 AM) [facility]
[2017-07-03] MEDS ORDERED: ASPIRIN 325 MG TABLET PO ONE (03:30)
[2017-07-03 03:31] LABS: BARBITURATES NEG (NEG); BENZODIAZEPINES NEG (NEG); CANNABINOIDS NEG (NEG); COCAINE NEG (NEG); METHADONE NEG (NEG); OPIATES NEG (NEG); PHENCYCLIDINE NEG (NEG)
[2017-07-03 03:37] LABS: AMPHETAMINE/METHAMPHETAMINE NEG (NEG)
[2017-07-03 03:38] LABS: CLARITY,URINE CLEAR; COLOR,URINE YELLOW
[2017-07-03 03:39] LABS: BACTERIA,URINE FEW /HPF (0-FEW); BILIRUBIN,URINE NEG (NEG); GLUCOSE,URINE NEG (NEG); NITRITE,URINE NEG (NEG); SQUAMOUS EPITHELIAL CELL,UR FEW /LPF; UROBILINOGEN,URINE 0.2 mg/dL (0.2 mg/dL); WBC,URINE 0 /HPF (0-4)
[2017-07-03 03:57] LABS: ALBUMIN 3.8 g/dL (3.4-5.0); ALBUMIN/GLOBULIN RATIO 1.1 (1.0-1.7); ALK PHOS 105 U/L (46-116); ALT (SGPT) 85 U/L (14-59); ANION GAP 9 (6-14); AST (SGOT) 34 U/L (15-37); BLOOD UREA NITROGEN 18 mg/dL (7-20); BUN/CREATININE RATIO 23 (6-20); CALCIUM 9.3 mg/dL (8.5-10.1); CARBON DIOXIDE 28 mmol/L (21-32); CHLORIDE 107 mmol/L (98-107); CREATINE KINASE 35 U/L (26-192); CREATININE 0.8 mg/dL (0.6-1.0); DIRECT BILIRUBIN 0.1 mg/dL (0.0-0.2); GFR 74.5; GLUCOSE 116 mg/dL (70-99); LIPASE 125 U/L (73-393); MAGNESIUM 2.1 mg/dL (1.8-2.4); POTASSIUM 3.9 mmol/L (3.5-5.1); SODIUM 144 mmol/L (136-145); TOTAL BILIRUBIN 0.3 mg/dL (0.2-1.0); TOTAL PROTEIN 7.2 g/dL (6.4-8.2)
--- NOTE | 2017-07-03 04:08 | EKG ---
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
[2017-07-03] MEDS ORDERED: CONTRAST GIVEN MC PRN (04:15)
[2017-07-03] MEDS ORDERED: IOHEXOL 300 MG/ML 75 ML VIAL. IV ONE (04:30)
[2017-07-03] MEDS ORDERED: ONDANSETRON PF 4 MG/2 ML VIAL. ONE (04:35)
[2017-07-03] MEDS ORDERED: ONDANSETRON PF 4 MG/2 ML VIAL. IV ONE (05:00)
--- NOTE | 2017-07-03 05:04 | RAD ---
INDICATION: Omni 300, 75ml IV. Dyspnea and elevated d-dimer COMPARISON: Earlier same day TECHNIQUE: Axial CT images obtained through the chest. Intravenous contrast utilized. Angiogram 3D images processed per protocol. One or more of the following individualized dose reduction techniques were utilized for this examination: 1. Automated exposure control; 2. Adjustment of the mA and/or kV according to patient size; 3. Use of iterative reconstruction technique. FINDINGS: 6 mm left upper lung nodule. Mild groundglass opacities bilaterally. Linear opacity bilateral lower lung. Could be atelectasis or scarring. 5 mm nodule right lung base anteriorly. Partially visualized liver borderline low attenuation. Could be from phase of contrast but mild fatty infiltration is not excluded. Calcific atherosclerosis without definite thoracic aortic aneurysm. Some motion near a ascending thoracic aorta limits evaluation of region. Enlarged presumed lymph nodes at right pulmonary hilum measuring up to about 15 mm short axis. No embolus in main, right main or left main pulmonary artery. Some limitation peripherally secondary to motion. Degenerative changes the spine with mild scoliotic curvature. IMPRESSION: 1. No embolus in main, right main or left main pulmonary artery. Limited peripherally secondary to motion. 2. There are couple of pulmonary nodules measuring up to about 6 mm. 3. Mild groundglass opacities bilaterally. Could be from hypoventilatory changes but mild region of airway inflammation or edema is possible. 4. Mildly enlarged lymph node in right hilar region. Would consider obtaining a follow-up chest CT in a few months to ensure no growth to exclude neoplastic causes. Fleischner Society recommendations for solitary solid lung nodule follow up.: In a low risk patient: <6mm - No follow up required. 6-8mm - 6-[address], then CT at 18-24 months. >8mm - CT at 3 months, PET/CT or tissue sampling. In a high risk patient (history of smoking or other known risk factors): <6mm - Follow up CT at 12 months. 6-8mm - 6-[address], then CT at 18-24 months. >8mm - CT at 3 months, PET/CT or tissue sampling. Fleischner Society recommendations for multiple solid lung nodule follow up.: In a low risk patient: <6mm - No follow up required. 6-8mm - 3-[address], then CT at 18-24 months. >8mm - CT at 3-6 months, then at 18-24 months. PET/CT or tissue sampling based on most suspicious nodule. In a high risk patient (history of smoking or other known risk factors): <6mm - Follow up CT at 12 months. 6-8mm - 3-[address], then CT at 18-24 months. >8mm - CT at 3-6 months, PET/CT or tissue sampling option based on most suspicious nodule. Electronically signed by: Jamie Gonsalez MD (07/03/2017 5:00 AM) [facility]
== END 2017-07-03 05:39 | disposition home or self-care (01) ==
LOC: ER 02:01
DX: R06.00 Dyspnea, unspecified (principal); R10.9 Unspecified abdominal pain; M79.7 Fibromyalgia; Z87.891 Personal history of nicotine dependence; Z88.5 Allergy status to narcotic agent; Z88.8 Allergy status to other drugs, medicaments and biological substances
CPT/HCPCS: 36415; 71020; 71275; 74020; 80053; 80076; 80307; 81001; 82553; 83690; 83735; 83880; 84443; 84484; 85025; 85379; 85610; 85730; 93005; 96374; 99285; J2405; Q9967; G0479

== ENCOUNTER → 2017-12-14 | Outpatient (CLI) | payer OTHER ==
--- NOTE | 2017-12-14 11:46 | RAD ---
EXAM: Left shoulder, 3 views; right knee, 2 views. HISTORY: Pain. COMPARISON: None. FINDINGS: Left shoulder: Internal and external rotation and transscapular views of the left shoulder are obtained. There is no fracture, dislocation or subluxation. Right knee: Frontal and lateral views of the right knee are obtained. There is no fracture, dislocation or subluxation. There is mild tricompartment marginal spurring. There is lucency with surrounding sclerosis within the lateral femoral condyle, likely due to a prominent degenerative subchondral cyst or osteonecrosis. There is trace joint fluid, without a significant effusion. IMPRESSION: 1. No acute osseous finding. 2. Mild tricompartmental osteoarthritis of the right knee. There is lucency with surrounding sclerosis within the lateral femoral condyle due to a prominent degenerative subchondral cyst or osteonecrosis.
== END | disposition home or self-care (01) ==
LOC: DXRAD 09:50
PROVIDERS: ATTEND Surgery
DX: M17.11 Unilateral primary osteoarthritis, right knee (principal); M25.512 Pain in left shoulder
CPT/HCPCS: 73030; 73560

== ENCOUNTER 2018-05-21 14:30 | Emergency (ER) | payer OTHER ==
[~2018-05-21] VITALS: Ht 172.7 cm; Wt 126.7 kg
[2018-05-21] MEDS ORDERED: LISINOPRIL 10 MG TABLET PO ONE (15:15)
[2018-05-21] MEDS ORDERED: LISI10TA2 PO (15:34)
--- NOTE | 2018-05-21 15:34 | PHYS DOC ---
Past History Past Medical History: Anxiety, Diverticulitis, Fibromyalgia, Hypertension, Other Additional Past Medical Histor: Lyme's disease; fibromyalgia, diverticulitis Past Surgical History: Appendectomy, Hysterectomy, Tonsillectomy Smoking: Non-smoker, Quit Less Than 1 Year Alcohol Use: Rarely Drug Use: None Adult General Chief Complaint Chief Complaint: HYPERTENSION HPI HPI Patient is a 57 year old female who presents with complaining of elevation of blood pressure. Patient states she had elevation of blood pressure at home and doctors office and usually her blood pressure runs about 140/80 but today her blood pressure was 208/104 after she checks her blood pressure because of lightheadedness and shortness of breath and dizziness without chest pain or focal neuro deficit. Patient states she has family history of hypertension and elevation of blood pressure by herself but haven't started on blood pressure medication yet. Review of Systems Review of Systems Constitutional: Denies fever or chills [] Eyes: Denies change in visual acuity, redness, or eye pain [] HENT: Denies nasal congestion or sore throat [] Respiratory: Denies cough or shortness of breath [] Cardiovascular: No additional information not addressed in HPI [] GI: Denies abdominal pain, nausea, vomiting, bloody stools or diarrhea [] : Denies dysuria or hematuria [] Musculoskeletal: Denies back pain or joint pain [] Integument: Denies rash or skin lesions [] Neurologic: Reports headache, denies focal weakness or sensory changes [] Endocrine: Denies polyuria or polydipsia [] All other systems were reviewed and found to be within normal limits, except as documented in this note. Current Medications Current Medications Current Medications Medications (Trade) Dose Ordered Sig/Kiran Start Time Stop Time Status Last Admin Dose Admin Lisinopril (Prinivil) 10 mg 1X ONCE 05/21/18 15:15 05/21/18 15:16 UNV Allergies Allergies Allergies Coded Allergies Type Severity Reaction Last Updated Verified Nitrofurantoin Macrocrystal Allergy Intermediate 06/24/17 Yes guaifenesin Allergy Intermediate 06/24/17 Yes hydromorphone HCl Allergy Intermediate 06/24/17 Yes morphine Allergy Intermediate 06/24/17 Yes nitrofurantoin Allergy Intermediate 06/24/17 Yes paroxetine HCl Allergy Intermediate 06/24/17 Yes Physical Exam Physical Exam Constitutional: Well developed, well nourished, mild distress, non-toxic appearance. [] HENT: Normocephalic, atraumatic, oropharynx moist, no oral exudates, nose normal. [] Eyes: PERRLA, EOMI, conjunctiva normal, no discharge. [] Neck: Normal range of motion, no tenderness, supple, no stridor. [] Cardiovascular:Heart rate regular rhythm, no murmur [] Lungs & Thorax: Bilateral breath sounds clear to auscultation [] Abdomen: Bowel sounds normal, soft, no tenderness, no masses, no pulsatile masses. [] Skin: Warm, dry, no erythema, no rash. [] Back: No tenderness, no CVA tenderness. [] Extremities: No tenderness, no cyanosis, no clubbing, ROM intact, no edema. [] Neurologic: Alert and oriented X 3, normal motor function, normal sensory function, no focal deficits noted. [] Psychologic: Affect anxious, judgement normal, mood normal. [] Current Patient Data Vital Signs Vital Signs Date Time Temp Pulse Resp B/P (MAP) Pulse Ox O2 Delivery O2 Flow Rate FiO2 05/21/18 14:30 97.9 78 22 98 Room Air EKG EKG EKG interpreted by me. EKG at 1451 showed normal sinus rhythm at rate of 68, no acute ST and T-wave abnormalities Radiology/Procedures Radiology/Procedures [] Course & Med Decision Making Course & Med Decision Making Evaluation of patient in ER showed 57-year-old female patient presented to ER with elevation of blood pressure without diagnosis of hypertension. Patient states she has several episodes of elevation of blood pressure. Patient had blood pressure of 170s over 100 at arrival to ER that gradually improved. Plan discharge patient home with diagnose of newly diagnosed hypertension and prescription of lisinopril. Dragon Disclaimer Dragon Disclaimer This electronic medical record was generated, in whole or in part, using a voice recognition dictation system. Departure Departure: Impression: Primary Impression: Elevated blood pressure reading without diagnosis of hypertension Disposition: HOME, SELF-CARE (at 1532) Condition: IMPROVED Referrals: SHANICE JAMESON (PCP) Patient Instructions: Form - Blood Pressure Record Sheet, How to Take Your Blood Pressure, Kwuq-[id number], Hypertension, Managing Your High Blood Pressure Additional Instructions: Follow-up with your primary care physician in 3-5 days Return to ER if not getting better Scripts Lisinopril (LISINOPRIL) 10 Mg Tablet 10 MG PO DAILY for FOR HYPERTENSION, #30 TAB 0 Refills Prov: ZAIRE SCHNEIDER MD 05/21/18 ZAIRE SCHNEIDER MD May 21, 2018 15:34
[2018-05-21 15:35] VITALS: BP 160/71
--- NOTE | 2018-05-21 16:56 | EKG ---
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
== END 2018-05-21 15:40 | disposition home or self-care (01) ==
LOC: ER 14:30
DX: I10 Essential (primary) hypertension (principal); F41.9 Anxiety disorder, unspecified; M79.7 Fibromyalgia; Z87.891 Personal history of nicotine dependence; Z88.5 Allergy status to narcotic agent; Z88.8 Allergy status to other drugs, medicaments and biological substances
CPT/HCPCS: 93005; 99283

== ENCOUNTER → 2018-07-13 | Outpatient (CLI) | payer OTHER ==
[~2018-07-13] MED LIST changes: +LISI10TA2 PO; +METR-84 PO; -METR500T8 PO
[2018-07-13 15:14] LABS: BASO # 0.1 x10^3/uL (0.0-0.2); BASO % 1 % (0-3); EOS # 0.2 x10^3/uL (0.0-0.7); EOS % 2 % (0-3); HEMATOCRIT 44.7 % (36.0-47.0); HEMOGLOBIN 14.9 g/dL (12.0-15.5); LYMPH # 2.8 x10^3/uL (1.0-4.8); LYMPH % 28 % (24-48); MEAN CORPUSCULAR HEMOGLOBIN 28 pg (25-35); MEAN CORPUSCULAR HGB CONC 33 g/dL (31-37); MEAN CORPUSCULAR VOLUME 83 fL (79-100); MONO # 0.7 x10^3/uL (0.0-1.1); MONO % 7 % (0-9); NEUT # 6.4 x10^3uL (1.8-7.7); NEUT % 63 % (31-73); PLATELET COUNT 344 x10^3/uL (140-400); WHITE BLOOD COUNT 10.2 x10^3/uL (4.0-11.0)
[2018-07-14 02:27] LABS: RHEUMATOID FACTOR <10.0 IU/mL (0.0-13.9)
== END | disposition home or self-care (01) ==
LOC: LAB 13:20
PROVIDERS: ATTEND Family Medicine
DX: H20.9 Unspecified iridocyclitis (principal)
CPT/HCPCS: 36415; 85025; 86038; 86140; 86431; 86592; 86617; 86618

== ENCOUNTER 2018-08-20 13:03 | Emergency (ER) | payer OTHER ==
[~2018-08-20] VITALS: Ht 172.7 cm; Wt 123.7 kg
[2018-08-20 14:18] LABS: BASO # 0.1 x10^3/uL (0.0-0.2); BASO % 1 % (0-3); EOS # 0.2 x10^3/uL (0.0-0.7); EOS % 2 % (0-3); HEMATOCRIT 45.8 % (36.0-47.0); HEMOGLOBIN 15.4 g/dL (12.0-15.5); LYMPH # 2.5 x10^3/uL (1.0-4.8); LYMPH % 23 % (24-48); MEAN CORPUSCULAR HEMOGLOBIN 28 pg (25-35); MEAN CORPUSCULAR HGB CONC 34 g/dL (31-37); MEAN CORPUSCULAR VOLUME 84 fL (79-100); MONO # 0.6 x10^3/uL (0.0-1.1); MONO % 5 % (0-9); NEUT # 7.3 x10^3uL (1.8-7.7); NEUT % 69 % (31-73); PLATELET COUNT 345 x10^3/uL (140-400); RED BLOOD COUNT 5.47 x10^6/uL (3.50-5.40); RED CELL DISTRIBUTION WIDTH 14.3 % (11.5-14.5); WHITE BLOOD COUNT 10.5 x10^3/uL (4.0-11.0)
--- NOTE | 2018-08-20 14:21 | PHYS DOC ---
Past History Past Medical History: Anxiety, Diverticulitis, Fibromyalgia, Hypertension, Other Additional Past Medical Histor: Lyme's disease; fibromyalgia, diverticulitis Past Surgical History: Appendectomy, Hysterectomy, Tonsillectomy Smoking: Non-smoker, Quit Less Than 1 Year Alcohol Use: Rarely Drug Use: None Adult General Chief Complaint Chief Complaint: MECHANICAL FALL HPI HPI Patient is a 57 YO F that is presenting with right sided abdominal pain for 5 days after a fall against a cabinet in her kitchen. She denies head trauma or LOC. She states that the pain is localized to the RUQ, it is a 4/10, and is aggravated by movement. She has tried to use aspirin to alleviate the pain without relief, she has a history of fibromyalgia so she is not sure whether this pain is more from an exacerbation of that or if it is from the fall. She reports that the pain has been pretty constant since the fall and that it is dull in nature. Reports visible bruising to area. Review of Systems Review of Systems Constitutional: Denies fever or chills [] Eyes: Denies change in visual acuity, redness, or eye pain [] HENT: Denies nasal congestion or sore throat [] Respiratory: Denies cough or shortness of breath [] Cardiovascular: Denies chest pain or palpitations GI: Admits abdominal pain, denies nausea, vomiting, or diarrhea [] : Denies dysuria or hematuria [] Integument: Admits to bruise along the right upper quadrant of the abdomen [] Neurologic: Denies headache, focal weakness or sensory changes [] Complete other systems were reviewed and found to be within normal limits, except as documented in this note. Current Medications Current Medications Current Medications Medications (Trade) Dose Ordered Sig/Kiran Start Time Stop Time Status Last Admin Dose Admin Iohexol (Omnipaque 300 Mg/ml) 75 ml 1X ONCE 08/20/18 14:00 08/20/18 14:01 UNV Allergies Allergies Allergies Coded Allergies Type Severity Reaction Last Updated Verified Nitrofurantoin Macrocrystal Allergy Intermediate 06/24/17 Yes guaifenesin Allergy Intermediate 06/24/17 Yes hydromorphone HCl Allergy Intermediate 06/24/17 Yes morphine Allergy Intermediate 06/24/17 Yes nitrofurantoin Allergy Intermediate 06/24/17 Yes paroxetine HCl Allergy Intermediate 06/24/17 Yes Physical Exam Physical Exam Constitutional: Well developed, well nourished, no acute distress, non-toxic appearance. [] HENT: Normocephalic, atraumatic, nose normal. [] Eyes: Conjunctiva normal, no discharge. [] Neck: Normal range of motion, no midline tenderness, supple. [] Cardiovascular: Heart rate regular rhythm, no murmur [] Lungs & Thorax: Bilateral breath sounds clear to auscultation [] Abdomen: Soft, tenderness to palpation in the RUQ Skin: Warm, dry, no erythema, linear healing ecchymosis noted to RUQ Extremities: No tenderness, ROM intact, no edema. [] Neurologic: Alert and oriented X 3, no focal deficits noted. [] Psychologic: Affect normal, judgement normal, mood normal. [] Current Patient Data Vital Signs Vital Signs Date Time Temp Pulse Resp B/P (MAP) Pulse Ox O2 Delivery O2 Flow Rate FiO2 08/20/18 13:20 97.8 70 18 100 Room Air EKG EKG [] Radiology/Procedures Radiology/Procedures PROCEDURE: CT ABD PELV W/ IV CONTRST ONLY PQRS Compliance Statement: One or more of the following individualized dose reduction techniques were utilized for this examination: 1. Automated exposure control 2. Adjustment of the mA and/or kV according to patient size 3. Use of iterative reconstruction technique CT ABD PELV W/ IV CONTRST ONLY Clinical Indication: RUQ blunt trauma 08/16/18 and pain with bruising. Hx: Appendectomy, hysterectomy Comparison: CT abdomen and pelvis with contrast June 22, 2017. Technique: Helical CT imaging of the abdomen and pelvis is performed after 75 cc of Omnipaque 300 IV contrast. Oral contrast not given. Findings: Tiny nodular opacities in the left lower lobe are stable. Lung bases otherwise clear. Cardiac size normal. The liver, gallbladder, spleen, pancreas, adrenal glands, abdominal aorta caliber, and kidneys are normal. Stomach unremarkable. No dilated small bowel. There is distal colon diverticulosis. No colon wall thickening. Appendectomy. Mild haziness of the central mesentery is similar. Finding is nonspecific. Mesenteric lymph nodes are smaller. There is no adenopathy. No intraperitoneal free air or free fluid. Urinary bladder is normal. Hysterectomy. There is minimal subcutaneous fat induration of the right upper quadrant ventral abdominal wall. Bones unremarkable. IMPRESSION: 1. No acute abdominal or pelvic abnormality. 2. Distal colon diverticulosis without diverticulitis. Electronically signed by: Yosi Salter MD (08/20/2018 2:40 PM) [facility] Course & Med Decision Making Course & Med Decision Making Pertinent Labs and Imaging studies reviewed. (See chart for details) Patient is a 57 YO F that presented with abdominal pain after a fall against a cabinet. CT abdomen and pelvis was negative for any acute pathology. Labs were ordered and posted to chart. Pain management was offered and patient deferred. Patient stable for discharge with outpatient follow-up with PCP. Discussed findings and plan with patient and family, who acknowledge understanding and agreement. Dragon Disclaimer Dragon Disclaimer This electronic medical record was generated, in whole or in part, using a voice recognition dictation system. Departure Departure: Impression: Primary Impression: Abdominal wall contusion Disposition: 01 HOME, SELF-CARE Condition: STABLE Referrals: PETER LINARES DO (PCP) Patient Instructions: Contusion, [id number] Problem Qualifiers Primary Impression: Abdominal wall contusion Encounter type: initial encounter Qualified Codes: S30.1XXA - Contusion of abdominal wall, initial encounter АЛЕКСАНДР OAKES DO Aug 20, 2018 14:21
[2018-08-20 14:26] LABS: BACTERIA,URINE 0 /HPF (0-FEW); BILIRUBIN,URINE NEG (NEG); CLARITY,URINE CLEAR; COLOR,URINE STRAW; GLUCOSE,URINE NEG (NEG); NITRITE,URINE NEG (NEG); RBC,URINE RARE /HPF (0-2); SQUAMOUS EPITHELIAL CELL,UR OCC /LPF; UROBILINOGEN,URINE 0.2 mg/dL (0.2 mg/dL); WBC,URINE 0 /HPF (0-4)
[2018-08-20 14:34] LABS: ALBUMIN 4.2 g/dL (3.4-5.0); CALCIUM 9.5 mg/dL (8.5-10.1); CREATININE 0.8 mg/dL (0.6-1.0); GFR 74.2; MAGNESIUM 2.1 mg/dL (1.8-2.4); POTASSIUM 3.8 mmol/L (3.5-5.1); TOTAL BILIRUBIN 0.7 mg/dL (0.2-1.0); TOTAL PROTEIN 8.4 g/dL (6.4-8.2)
[2018-08-20] MEDS ORDERED: IOHEXOL 300 MG/ML 75 ML VIAL. IV ONE (14:40)
--- NOTE | 2018-08-20 14:43 | RAD ---
PQRS Compliance Statement: One or more of the following individualized dose reduction techniques were utilized for this examination: 1. Automated exposure control 2. Adjustment of the mA and/or kV according to patient size 3. Use of iterative reconstruction technique CT ABD PELV W/ IV CONTRST ONLY Clinical Indication: RUQ blunt trauma 08/16/18 and pain with bruising. Hx: Appendectomy, hysterectomy Comparison: CT abdomen and pelvis with contrast June 22, 2017. Technique: Helical CT imaging of the abdomen and pelvis is performed after 75 cc of Omnipaque 300 IV contrast. Oral contrast not given. Findings: Tiny nodular opacities in the left lower lobe are stable. Lung bases otherwise clear. Cardiac size normal. The liver, gallbladder, spleen, pancreas, adrenal glands, abdominal aorta caliber, and kidneys are normal. Stomach unremarkable. No dilated small bowel. There is distal colon diverticulosis. No colon wall thickening. Appendectomy. Mild haziness of the central mesentery is similar. Finding is nonspecific. Mesenteric lymph nodes are smaller. There is no adenopathy. No intraperitoneal free air or free fluid. Urinary bladder is normal. Hysterectomy. There is minimal subcutaneous fat induration of the right upper quadrant ventral abdominal wall. Bones unremarkable. IMPRESSION: 1. No acute abdominal or pelvic abnormality. 2. Distal colon diverticulosis without diverticulitis. Electronically signed by: Yosi Salter MD (08/20/2018 2:40 PM) [facility]
[2018-08-20 14:57] VITALS: BP 140/58
== END 2018-08-20 14:58 | disposition home or self-care (01) ==
LOC: ER 13:03
DX: S30.1XXA Contusion of abdominal wall, initial encounter (principal); M79.7 Fibromyalgia; I10 Essential (primary) hypertension; Z90.710 Acquired absence of both cervix and uterus; Z87.891 Personal history of nicotine dependence; Z90.89 Acquired absence of other organs; Z88.5 Allergy status to narcotic agent; Z88.8 Allergy status to other drugs, medicaments and biological substances; W18.30XA Fall on same level, unspecified, initial encounter; Y93.89 Activity, other specified; Y92.090 Kitchen in other non-institutional residence as the place of occurrence of the external cause; Y99.8 Other external cause status
CPT/HCPCS: 36415; 74177; 80053; 81001; 83690; 83735; 85025; 85610; 85730; 99284; Q9967

== ENCOUNTER 2019-03-11 19:26 | Emergency (ER) | payer OTHER ==
[~2019-03-11] VITALS: Ht 172.7 cm; Wt 123.7 kg
[~2019-03-11 19:26] MED LIST changes: +METR-34 PO; -METR-84 PO; -PROM12.56 PO; +PROM12.58 PO
--- NOTE | 2019-03-11 20:08 | ED.ADGEN ---
Past History Past Medical History: Anxiety, Arthritis, Diverticulitis, Fibromyalgia, Hypertension, Other Additional Past Medical Histor: Lyme's disease; fibromyalgia, diverticulitis Past Surgical History: Appendectomy, Hysterectomy, Tonsillectomy, Other Smoking: Non-smoker, Quit Less Than 1 Year Alcohol Use: Rarely Drug Use: None Adult General Chief Complaint Chief Complaint ".. I always have back pain and fibromyalgia.. but the last two day.. I ve gotten severe low back pain..." [facility] HPI Patient is a 58 year old female who presents with exacerbation of lumbar sacral pain. Patient denies any recent trauma. But has been picking up her grandchild more often. Patient states has chronic fibromyalgia pain and chronic back pain . Patient denies any fever or chills. Patient denies any history of problems with defecation or urination. No history immunosuppression. No history of IV drug use. No history of cancer. Patient reports that she is having persistent paralumbar and midline. Tenderness. Has a crease exacerbation of right sided hip and leg pain down to her foot. Pain follows a sciatic route. Patient advised the pain as severe and has been present for the last 2 days. Current home medications have not helped relieve the pain .Pt. follows with Dr. De Paz. Review of Systems Review of Systems Constitutional: Denies fever or chills [] Eyes: Denies change in visual acuity, redness, or eye pain [] HENT: Denies nasal congestion or sore throat [] Respiratory: Denies cough or shortness of breath [] Cardiovascular: No additional information not addressed in HPI [] GI: Denies abdominal pain, nausea, vomiting, bloody stools or diarrhea [] : Denies dysuria or hematuria [] Musculoskeletal: Complains of severe back pain and right sciatica pain. Pt. has generalized joint pain []chronically from fibromyalgia Integument: Denies rash or skin lesions [] Neurologic: Denies headache, focal weakness or sensory changes [] Endocrine: Denies polyuria or polydipsia [] All other systems were reviewed and found to be within normal limits, except as documented in this note. Family History Family History Noncontributory Current Medications Current Medications Current Medications Medications (Trade) Dose Ordered Sig/Kiran Start Time Stop Time Status Last Admin Dose Admin Ketorolac Tromethamine (Toradol 30mg Vial) 30 mg 1X ONCE 03/11/19 20:15 03/11/19 20:16 DC 03/11/19 20:39 30 MG Lactated Ringer's 1,000 ml @ 1,000 mls/hr Q1H 03/11/19 20:09 03/11/19 21:08 DC 03/11/19 20:38 1,000 MLS/HR Methylprednisolone Acetate (DEPO-Medrol IM) 40 mg 1X ONCE 03/11/19 20:15 03/11/19 20:16 DC 03/11/19 20:39 40 MG Orphenadrine Citrate (Norflex) 60 mg 1X ONCE 03/11/19 20:15 03/11/19 20:16 DC 03/11/19 20:39 60 MG Allergies Allergies Allergies Coded Allergies Type Severity Reaction Last Updated Verified Nitrofurantoin Macrocrystal Allergy Intermediate 06/24/17 Yes guaifenesin Allergy Intermediate 06/24/17 Yes hydromorphone HCl Allergy Intermediate 06/24/17 Yes morphine Allergy Intermediate 06/24/17 Yes nitrofurantoin Allergy Intermediate 06/24/17 Yes paroxetine HCl Allergy Intermediate 06/24/17 Yes Physical Exam Physical Exam Constitutional: in acute distress, non-toxic appearance. [] HENT: Normocephalic, atraumatic, bilateral external ears normal, oropharynx moist, no oral exudates, nose normal. Big hair. Eyes: PERRLA, EOMI, conjunctiva normal, no discharge. [] Neck: Normal range of motion, no tenderness, supple, no stridor. [] Cardiovascular:Heart rate regular rhythm, no murmur [] Lungs & Thorax: Bilateral breath sounds equal at apexes on auscultation [] Abdomen: Bowel sounds normal, soft, no tenderness, no masses, no pulsatile masses. Obese. Old surgery scar. Skin: Warm, dry, no erythema, no rash. [] Back: Paraspinal lumbar spasms and tenderness, no CVA tenderness. [] Extremities: . no cyanosis, no clubbing, ROM intact, no edema. [] Patient does have some tenderness along right sciatic route. No cording appreciated. Straight leg lifts on right [place] exacerbates her back pain. Patient has a limping gait due to right leg pain- sciatic pain Neurologic: Alert and oriented X 3, normal motor function, normal sensory function, no focal deficits noted. []DTRs +2 patella. Psychologic: Affect anxious, judgement normal, mood normal. [] Current Patient Data Vital Signs Vital Signs Date Time Temp Pulse Resp B/P (MAP) Pulse Ox O2 Delivery O2 Flow Rate FiO2 03/11/19 20:47 70 18 164/91 (115) 100 Room Air 03/11/19 19:30 97.7 Lab Results Laboratory Tests Test 03/11/19 19:45 03/11/19 20:36 Urine Collection Type Unknown Urine Color Straw Urine Clarity Clear Urine pH 5.5 Urine Specific [place] <=1.005 Urine Protein Neg (NEG-TRACE) Urine Glucose (UA) Neg mg/dL (NEG) Urine Ketones (Stick) Neg mg/dL (NEG) Urine Blood Mod (NEG) Urine Nitrite Neg (NEG) Urine Bilirubin Neg (NEG) Urine Urobilinogen Dipstick 0.2 mg/dL (0.2 mg/dL) Urine Leukocyte Esterase Neg (NEG) Urine RBC 1-2 /HPF (0-2) Urine WBC Occ /HPF (0-4) Urine Squamous Epithelial Cells Occ /LPF Urine Bacteria Few /HPF (0-FEW) Urine Opiates Screen Neg (NEG) Urine Methadone Screen Neg (NEG) Urine Barbiturates Neg (NEG) Urine Phencyclidine Screen Neg (NEG) Urine Amphetamine/Methamphetamine Neg (NEG) Urine Benzodiazepines Screen Neg (NEG) Urine Cocaine Screen Neg (NEG) Urine Cannabinoids Screen Neg (NEG) Urine Ethyl Alcohol Neg (NEG) White Blood Count 11.0 x10^3/uL (4.0-11.0) Red Blood Count 4.95 x10^6/uL (3.50-5.40) Hemoglobin 13.8 g/dL (12.0-15.5) Hematocrit 42.4 % (36.0-47.0) Mean Corpuscular Volume 86 fL (79-100) Mean Corpuscular Hemoglobin 28 pg (25-35) Mean Corpuscular Hemoglobin Concent 33 g/dL (31-37) Red Cell Distribution Width 13.7 % (11.5-14.5) Platelet Count 318 x10^3/uL (140-400) Neutrophils (%) (Auto) 70 % (31-73) Lymphocytes (%) (Auto) 20 % (24-48) L Monocytes (%) (Auto) 7 % (0-9) Eosinophils (%) (Auto) 2 % (0-3) Basophils (%) (Auto) 1 % (0-3) Neutrophils # (Auto) 7.7 x10^3uL (1.8-7.7) Lymphocytes # (Auto) 2.2 x10^3/uL (1.0-4.8) Monocytes # (Auto) 0.8 x10^3/uL (0.0-1.1) Eosinophils # (Auto) 0.2 x10^3/uL (0.0-0.7) Basophils # (Auto) 0.1 x10^3/uL (0.0-0.2) Erythrocyte Sedimentation Rate 21 (0-25) Prothrombin Time 10.0 SEC (9.4-11.4) Prothrombin Time INR 1.0 (0.9-1.1) PTT 27 SEC (23-33) Sodium Level 140 mmol/L (136-145) Potassium Level 3.6 mmol/L (3.5-5.1) Chloride Level 105 mmol/L (98-107) Carbon Dioxide Level 28 mmol/L (21-32) Anion Gap 7 (6-14) Blood Urea Nitrogen 18 mg/dL (7-20) Creatinine 0.8 mg/dL (0.6-1.0) Estimated GFR (Cockcroft-Gault) 73.9 Glucose Level 98 mg/dL (70-99) Calcium Level 9.3 mg/dL (8.5-10.1) Magnesium Level 2.2 mg/dL (1.8-2.4) Total Bilirubin 0.4 mg/dL (0.2-1.0) Direct Bilirubin 0.1 mg/dL (0.0-0.2) Aspartate Amino Transferase (AST) 13 U/L (15-37) L Alanine Aminotransferase (ALT) 22 U/L (14-59) Alkaline Phosphatase 78 U/L (46-116) Creatine Kinase 40 U/L (26-192) Troponin I Quantitative < 0.017 ng/mL (0-0.055) AM-Ubj-F-Type Natriuretic Peptide 69 pg/mL (0-124) Total Protein 7.7 g/dL (6.4-8.2) Albumin 3.9 g/dL (3.4-5.0) Lipase 115 U/L (73-870) EKG EKG [] Radiology/Procedures Radiology/Procedures [][address] [address] IMAGING REPORT Signed PATIENT: MEHNAZ CRAWLEY ACCOUNT: [id number] : 1960 LOCATION: ER AGE: 58 SEX: F EXAM STATUS: REG ER ORD. PHYSICIAN: SAAD MOURA MD REASON: Exacerbation lumbar pain PROCEDURE: CT LUMBAR SPINE WO CONTRAST EXAM: CT lumbar spine without contrast. HISTORY: Low back pain. TECHNIQUE: CT of the lumbar spine was performed without intravenous contrast. COMPARISON: None. FINDINGS: Mild atherosclerotic calcifications are noted. There is a minimal lumbar dextrocurvature. Sacroiliac osteoarthritis is mild bilaterally. Vertebral body heights are maintained, and no fractures are identified. Intervertebral disc heights are maintained. A Schmorl's node is noted posteriorly at the inferior endplate of L1. The conus is at L1 and appears normal. At L1-2, there is a small posterior disc-osteophyte complex. There is no stenosis. At L2-3, there is no stenosis. At L3-4, there is a small posterior disc bulge. There is no stenosis. At L4-5, there is a small posterior disc bulge. Facet osteoarthritis is moderate. There is no significant stenosis. At L5-S1. There is a small posterior disc bulge. Facet osteoarthritis is mild. There is no stenosis. IMPRESSION: 1. No fracture or malalignment. Mild degenerative changes for patient age as above do not result in significant central canal or neural foraminal stenosis. *One or more of the following individualized dose reduction techniques were utilized for this examination: 1. Automated exposure control. 2. Adjustment of the mA and/or kV according to patient size. 3. Use of iterative reconstruction technique. Electronically signed by: Tyson Peralta MD (03/11/2019 9:04 PM) [facility] DICTATED AND SIGNED BY: SHANICE PERALTA MD DATE: 03/11/192103 CC: YU LEE DO; SAAD MOURA MD ~ Course & Med Decision Making Course & Med Decision Making Pertinent Labs and Imaging studies reviewed. (See chart for details). She'll follow-up primary care.. Patient take meds as directed. Push fluids. Patient review labs and CT findings with primary care. If pain persists may need MRI and referral to neurosurgery. Patient use ice packs. Gentle massage. Consider physical therapy. [] Final Impression Final Impression 1. Acute Exacerbation Lumbar Sacral Back Pain[] 2. DJD- Lumbar spine- 3. History of fibromyalgia Dragon Disclaimer Dragon Disclaimer This electronic medical record was generated, in whole or in part, using a voice recognition dictation system. Discharge Summary Visit Information Final Diagnosis Problems Medical Problems: (1) Exacerbation of chronic back pain Status: Acute Brief Hospital Course Allergies Allergies Coded Allergies Type Severity Reaction Last Updated Verified Nitrofurantoin Macrocrystal Allergy Intermediate 06/24/17 Yes guaifenesin Allergy Intermediate 06/24/17 Yes hydromorphone HCl Allergy Intermediate 06/24/17 Yes morphine Allergy Intermediate 06/24/17 Yes nitrofurantoin Allergy Intermediate 06/24/17 Yes paroxetine HCl Allergy Intermediate 06/24/17 Yes Vital Signs Vital Signs Date Time Temp Pulse Resp B/P (MAP) Pulse Ox O2 Delivery O2 Flow Rate FiO2 03/11/19 20:47 70 18 164/91 (115) 100 Room Air 03/11/19 19:30 97.7 Lab Results Laboratory Tests Test 03/11/19 19:45 03/11/19 20:36 Urine Collection Type Unknown Urine Color Straw Urine Clarity Clear Urine pH 5.5 Urine Specific [place] <=1.005 Urine Protein Neg (NEG-TRACE) Urine Glucose (UA) Neg mg/dL (NEG) Urine Ketones (Stick) Neg mg/dL (NEG) Urine Blood Mod (NEG) Urine Nitrite Neg (NEG) Urine Bilirubin Neg (NEG) Urine Urobilinogen Dipstick 0.2 mg/dL (0.2 mg/dL) Urine Leukocyte Esterase Neg (NEG) Urine RBC 1-2 /HPF (0-2) Urine WBC Occ /HPF (0-4) Urine Squamous Epithelial Cells Occ /LPF Urine Bacteria Few /HPF (0-FEW) Urine Opiates Screen Neg (NEG) Urine Methadone Screen Neg (NEG) Urine Barbiturates Neg (NEG) Urine Phencyclidine Screen Neg (NEG) Urine Amphetamine/Methamphetamine Neg (NEG) Urine Benzodiazepines Screen Neg (NEG) Urine Cocaine Screen Neg (NEG) Urine Cannabinoids Screen Neg (NEG) Urine Ethyl Alcohol Neg (NEG) White Blood Count 11.0 x10^3/uL (4.0-11.0) Red Blood Count 4.95 x10^6/uL (3.50-5.40) Hemoglobin 13.8 g/dL (12.0-15.5) Hematocrit 42.4 % (36.0-47.0) Mean Corpuscular Volume 86 fL (79-100) Mean Corpuscular Hemoglobin 28 pg (25-35) Mean Corpuscular Hemoglobin Concent 33 g/dL (31-37) Red Cell Distribution Width 13.7 % (11.5-14.5) Platelet Count 318 x10^3/uL (140-400) Neutrophils (%) (Auto) 70 % (31-73) Lymphocytes (%) (Auto) 20 % (24-48) Monocytes (%) (Auto) 7 % (0-9) Eosinophils (%) (Auto) 2 % (0-3) Basophils (%) (Auto) 1 % (0-3) Neutrophils # (Auto) 7.7 x10^3uL (1.8-7.7) Lymphocytes # (Auto) 2.2 x10^3/uL (1.0-4.8) Monocytes # (Auto) 0.8 x10^3/uL (0.0-1.1) Eosinophils # (Auto) 0.2 x10^3/uL (0.0-0.7) Basophils # (Auto) 0.1 x10^3/uL (0.0-0.2) Erythrocyte Sedimentation Rate 21 (0-25) Prothrombin Time 10.0 SEC (9.4-11.4) Prothromb Time International Ratio 1.0 (0.9-1.1) Activated Partial Thromboplast Time 27 SEC (23-33) Sodium Level 140 mmol/L (136-145) Potassium Level 3.6 mmol/L (3.5-5.1) Chloride Level 105 mmol/L (98-107) Carbon Dioxide Level 28 mmol/L (21-32) Anion Gap 7 (6-14) Blood Urea Nitrogen 18 mg/dL (7-20) Creatinine 0.8 mg/dL (0.6-1.0) Estimated GFR (Cockcroft-Gault) 73.9 Glucose Level 98 mg/dL (70-99) Calcium Level 9.3 mg/dL (8.5-10.1) Magnesium Level 2.2 mg/dL (1.8-2.4) Total Bilirubin 0.4 mg/dL (0.2-1.0) Direct Bilirubin 0.1 mg/dL (0.0-0.2) Aspartate Amino Transf (AST/SGOT) 13 U/L (15-37) Alanine Aminotransferase (ALT/SGPT) 22 U/L (14-59) Alkaline Phosphatase 78 U/L (46-116) Creatine Kinase 40 U/L (26-192) Troponin I Quantitative < 0.017 ng/mL (0-0.055) ZH-Lpe-N-Type Natriuretic Peptide 69 pg/mL (0-124) Total Protein 7.7 g/dL (6.4-8.2) Albumin 3.9 g/dL (3.4-5.0) Lipase 115 U/L (73-393) Brief Hospital Course Ms. Crawley is a 58 old female who presented with exacerbation of her chronic Lumbar sacral back pain and sciatica. Discharge Information Condition at Discharge: Improved, Stable Disposition/Orders: D/C to Home Dischare Medications Current Medications Lactated Ringer's 1,000 ml @ 1,000 mls/hr Q1H IV Last administered on 03/11/19at 20:38; Admin Dose 1,000 MLS/HR; Start 03/11/19 at 20:09; Stop 03/11/19 at 21:08; Status DC Ketorolac Tromethamine (Toradol 30mg Vial) 30 mg 1X ONCE IV Last administered on 03/11/19at 20:39; Admin Dose 30 MG; Start 03/11/19 at 20:15; Stop 03/11/19 at 20:16; Status DC Orphenadrine Citrate (Norflex) 60 mg 1X ONCE IV Last administered on 03/11/19at 20:39; Admin Dose 60 MG; Start 03/11/19 at 20:15; Stop 03/11/19 at 20:16; Status DC Methylprednisolone Acetate (DEPO-Medrol IM) 40 mg 1X ONCE IM Last administered on 03/11/19at 20:39; Admin Dose 40 MG; Start 03/11/19 at 20:15; Stop 03/11/19 at 20:16; Status DC Active Scripts Active Cyclobenzaprine Hcl 10 Mg Tablet 10 Mg PO TIDPRN Hydrocodone-Ibuprofen 7.5-200 (Hydrocodone/Ibuprofen) 1 Each Tablet 1 Tab PO PRN Q6HRS PRN Lisinopril 10 Mg Tablet 10 Mg PO DAILY Promethazine Hcl 12.5 Mg Tablet 1 Tab PO Q6HRS Metronidazole 500 Mg Tablet 1 Tab PO TID Bactrim Ds Tablet (Sulfamethoxazole/Trimethoprim) 1 Each Tablet 1 Tab PO BID Bentyl (Dicyclomine Hcl) 10 Mg Capsule 1 Cap PO TID Reported Celexa (Citalopram Hydrobromide) 20 Mg Tablet 1 Tab PO DAILY Lorazepam 0.5 Mg Tablet 1 Tab PO QID Dragon Disclaimer This chart was dictated in whole or in part using Voice Recognition software in a busy, high-work load, and often noisy Emergency Department environment. It may contain unintended and wholly unrecognized errors or omissions. SAAD MOURA MD Mar 11, 2019 20:08
[2019-03-11] MEDS ORDERED: IV RINGERS SOLUTION,LACTATED 1,000 ML IV SCH (20:09)
[2019-03-11] MEDS ORDERED: ORPHENADRINE CITRATE 60 MG/2 ML VIAL. IV ONE (20:15)
[2019-03-11] MEDS ORDERED: KETOROLAC 30 MG/ML VIAL. IV ONE (20:15)
[2019-03-11] MEDS ORDERED: methylPREDNISolone ACETATE 40 MG/ML VIAL. IM ONE (20:15)
[2019-03-11 20:29] LABS: BARBITURATES NEG (NEG); BENZODIAZEPINES NEG (NEG); CANNABINOIDS NEG (NEG); COCAINE NEG (NEG); METHADONE NEG (NEG); OPIATES NEG (NEG); PHENCYCLIDINE NEG (NEG)
[2019-03-11 20:30] LABS: BILIRUBIN,URINE NEG (NEG); CLARITY,URINE CLEAR; COLOR,URINE STRAW; GLUCOSE,URINE NEG (NEG); NITRITE,URINE NEG (NEG); UROBILINOGEN,URINE 0.2 mg/dL (0.2 mg/dL)
[2019-03-11 20:31] LABS: BACTERIA,URINE FEW /HPF (0-FEW); SQUAMOUS EPITHELIAL CELL,UR OCC /LPF; WBC,URINE OCC /HPF (0-4)
[2019-03-11 20:39] LABS: AMPHETAMINE/METHAMPHETAMINE NEG (NEG)
[2019-03-11 20:48] LABS: BASO # 0.1 x10^3/uL (0.0-0.2); BASO % 1 % (0-3); EOS # 0.2 x10^3/uL (0.0-0.7); EOS % 2 % (0-3); HEMATOCRIT 42.4 % (36.0-47.0); HEMOGLOBIN 13.8 g/dL (12.0-15.5); LYMPH # 2.2 x10^3/uL (1.0-4.8); LYMPH % 20 % (24-48); MEAN CORPUSCULAR HEMOGLOBIN 28 pg (25-35); MEAN CORPUSCULAR HGB CONC 33 g/dL (31-37); MEAN CORPUSCULAR VOLUME 86 fL (79-100); MONO # 0.8 x10^3/uL (0.0-1.1); MONO % 7 % (0-9); NEUT # 7.7 x10^3uL (1.8-7.7); NEUT % 70 % (31-73); PLATELET COUNT 318 x10^3/uL (140-400); RED BLOOD COUNT 4.95 x10^6/uL (3.50-5.40); RED CELL DISTRIBUTION WIDTH 13.7 % (11.5-14.5)
--- NOTE | 2019-03-11 21:07 | RAD ---
EXAM: CT lumbar spine without contrast. HISTORY: Low back pain. TECHNIQUE: CT of the lumbar spine was performed without intravenous contrast. COMPARISON: None. FINDINGS: Mild atherosclerotic calcifications are noted. There is a minimal lumbar dextrocurvature. Sacroiliac osteoarthritis is mild bilaterally. Vertebral body heights are maintained, and no fractures are identified. Intervertebral disc heights are maintained. A Schmorl's node is noted posteriorly at the inferior endplate of L1. The conus is at L1 and appears normal. At L1-2, there is a small posterior disc-osteophyte complex. There is no stenosis. At L2-3, there is no stenosis. At L3-4, there is a small posterior disc bulge. There is no stenosis. At L4-5, there is a small posterior disc bulge. Facet osteoarthritis is moderate. There is no significant stenosis. At L5-S1. There is a small posterior disc bulge. Facet osteoarthritis is mild. There is no stenosis. IMPRESSION: 1. No fracture or malalignment. Mild degenerative changes for patient age as above do not result in significant central canal or neural foraminal stenosis. *One or more of the following individualized dose reduction techniques were utilized for this examination: 1. Automated exposure control. 2. Adjustment of the mA and/or kV according to patient size. 3. Use of iterative reconstruction technique. Electronically signed by: Tyson Peralta MD (03/11/2019 9:04 PM) [facility]
[2019-03-11 21:10] LABS: ALBUMIN 3.9 g/dL (3.4-5.0); CALCIUM 9.3 mg/dL (8.5-10.1); CREATININE 0.8 mg/dL (0.6-1.0); DIRECT BILIRUBIN 0.1 mg/dL (0.0-0.2); GFR 73.9; MAGNESIUM 2.2 mg/dL (1.8-2.4); POTASSIUM 3.6 mmol/L (3.5-5.1); TOTAL BILIRUBIN 0.4 mg/dL (0.2-1.0); TOTAL PROTEIN 7.7 g/dL (6.4-8.2)
[2019-03-11 21:50] VITALS: BP 137/59
[2019-03-11 21:53] LABS: SEDIMENTATION RATE 21 (0-25)
[2019-03-11] MEDS ORDERED: CYCL-331 PO (21:54)
[2019-03-11] MEDS ORDERED: HYDR-1179 PO (21:54)
== END 2019-03-11 22:10 | disposition home or self-care (01) ==
LOC: ER 19:26
DX: G89.29 Other chronic pain (principal); M54.5 Low back pain; M53.3 Sacrococcygeal disorders, not elsewhere classified; M47.896 Other spondylosis, lumbar region; M79.7 Fibromyalgia; M19.90 Unspecified osteoarthritis, unspecified site; I10 Essential (primary) hypertension; Z90.49 Acquired absence of other specified parts of digestive tract; Z90.710 Acquired absence of both cervix and uterus; Z87.891 Personal history of nicotine dependence; Z88.8 Allergy status to other drugs, medicaments and biological substances; Z88.5 Allergy status to narcotic agent
CPT/HCPCS: 36415; 72131; 80048; 80076; 80307; 81001; 82550; 83690; 83735; 83880; 84443; 84484; 85025; 85610; 85651; 85730; 96372; 96374; 96375; 99285; J1030; J1885; J2360; J7120; 96361; 99283

== ENCOUNTER 2019-09-11 22:43 | Observation (INO) | payer OTHER ==
[~2019-09-11] VITALS: Ht 172.7 cm; Wt 126.7 kg
[~2019-09-11 22:43] MED LIST changes: +CYCL-331 PO; +HYDR-1179 PO
--- NOTE | 2019-09-11 22:50 | PHYS DOC ---
Past History Past Medical History: Anxiety, Arthritis, Bronchitis, Diverticulitis, Fibromyalgia, High Cholesterol, Hypertension, Other Additional Past Medical Histor: Lyme's disease; fibromyalgia, diverticulitis Past Surgical History: Appendectomy, Hysterectomy, Tonsillectomy, Other Smoking: Non-smoker, Quit Greater Than 1 Year Alcohol Use: Rarely Drug Use: None Adult General Chief Complaint Chief Complaint: "I got sick like just in the last 24 hrs.. fever spikes .. chills.. coughing." ..."My BP was through the roof.... like 220/110..... and this chest pain down here under my Lt. breast and back.. it will not go away.. it been there last couple days... now.. " HPI HPI Patient is a 58 year old female who presents with above hx and and complaints of malaise, arthralgia, fever, elevated blood pressure and left chest wall pain. Pain seems to be localized along left T-5 dermatome. Patient does have some slight erythemic changes to the skin at this site. The area is tender to touch. Patient states she's had mild malaise last couple days. Patient does have history of chronic pain due to fibromyalgia and arthritic pains. No history of prior DVTs or pulmonary embolisms with her family members.. Patient does have home therapies with oils and her chronic meds patient normally follows with Dr. De Paz for blood pressure and maintenance medications. Patient does have a history of past tobacco use but has not used tobacco for approximately 8 years. Patient had a significant history of Lyme disease, diverticulosis, does have history of breast fibrous chronic changes. Hx. of anxiety. Patient recently did have a left knee meniscus injury and underwent steroid injection approximately 2 weeks ago. Patient states she did have a stress test approximately 15 years ago when she was having multiple medical problems. Patient states reportedly stress test showed no acute findings of coronary artery disease. There is a family history of heart problems with father has had stents, defibrillator, coronary artery bypass history . Father's cardiac proble ms started at age 50s. Mother has a history of hypertension. Has 3 living brothers one full and 2 half. One brother of drug overdose. None of brothers they have known cardiac problems. She has 3 sisters , one full and 2 half-sisters - none have cardiac problems. Patient did have chickenpox as a child. Patient does not believe in flu vaccinations. Patient reports she has multiple allergies and sensitivities to medicines. Prefers to tx self with homeopathic meds and therapeutic massage oils. Patient advised the strongest pain med she uses is occasional Ibuprofen. Review of Systems Review of Systems Constitutional: History of fever or chills [] Eyes: Denies change in visual acuity, redness, or eye pain [] HENT: Denies nasal congestion or sore throat [] Respiratory: Denies cough or shortness of breath [] Cardiovascular: No additional information not addressed in HPI [] GI: Denies abdominal pain, nausea, vomiting, bloody stools or diarrhea [] : Denies dysuria or hematuria [] Musculoskeletal: Denies back pain or joint pain [] Integument: Denies rash or skin lesions [] Neurologic: Denies headache, focal weakness or sensory changes [] Endocrine: Denies polyuria or polydipsia [] All other systems were reviewed and found to be within normal limits, except as documented in this note. Family History Family History Father had history of onset of cardiac disease age 50s, mother has history of hypertension Current Medications Current Medications See nursing for home medications Allergies Allergies Allergies Coded Allergies Type Severity Reaction Last Updated Verified Nitrofurantoin Macrocrystal Allergy Intermediate 06/24/17 Yes guaifenesin Allergy Intermediate 06/24/17 Yes hydromorphone HCl Allergy Intermediate 06/24/17 Yes morphine Allergy Intermediate 06/24/17 Yes nitrofurantoin Allergy Intermediate 06/24/17 Yes paroxetine HCl Allergy Intermediate 06/24/17 Yes Physical Exam Physical Exam Constitutional: Moderate acute distress, non-toxic appearance. [] HENT: Normocephalic, atraumatic, bilateral external ears normal, oropharynx moist, no oral exudates, nose normal. [Hair- Dreads. Eyes: PERRLA, EOMI, conjunctiva normal, no discharge. [] Neck: Normal range of motion, no tenderness, supple, no stridor. [] Cardiovascular. Tachycardia:Heart rate regular rhythm, no murmur []PIM slightly to the left Lungs & Thorax: Bilateral breath sounds equal at apex with scattered wheezes on auscultation []. Marked left chest wall tenderness along T5 dermatome. History of face flight erythemic area along the dermatome that is tender to the touch. Fibrocystic changes of breast. Abdomen: Bowel sounds normal, soft, no tenderness, no masses, no pulsatile masses. Obese. Old surgical scars. Skin: Warm, dry, no erythema, no rash. [Except findings of a light erythemic change along left T5 dermatome Back: Left flank tenderness, no CVA tenderness. [] Extremities: No tenderness, no cyanosis, no clubbing, ROM intact, ankle edema. Tenderness in left knee and calf. Neurologic: Alert and oriented X 3, normal motor function, normal sensory function, no focal deficits noted. [] Psychologic: Affect anxious, judgement normal, mood normal. [] EKG EKG My interpretation of EKG shows a sinus rhythm at 99 bpm. Some nonspecific contour changes anterior lateral areas. But no findings of acute STEMI with contralateral changes.[] Radiology/Procedures Radiology/Procedures [address] [address] IMAGING REPORT Signed PATIENT: MEHNAZ HANNON BACCOUNT: [id number] : 1960 LOCATION: ER AGE: 58 SEX: F EXAM STATUS: REG ER ORD. PHYSICIAN: SAAD MOURA MD REASON: Lt chest wall pain, elev. d-dimer, tachycardia PROCEDURE: CT ANGIOGRAPHY CHEST CTA Chest with contrast: Clinical History: Left chest wall pain and elevated d-dimer tachycardia. Axial helical images of the chest were obtained after the administration of 100 cc of IV Isovue-370 and timed appropriately for a pulmonary arterial study. Conventional axial reconstruction was performed in addition to coronal, sagittal and bilateral oblique MIP (maximum intensity projection). This study was ordered to detect possible pulmonary embolism. FINDINGS: There are no filling defects to suggest pulmonary embolism. Mild groundglass opacities are likely discoid atelectasis. There are small and borderline size enlarged lymph nodes in the wilmer and mediastinum. The thoracic aorta appears normal. Impression: 1. No evidence of pulmonary embolism. 2. Mild lymphadenopathy. This could be secondary to sarcoidosis. PQRS Compliance Statement: One or more of the following individualized dose reduction techniques were utilized for this examination: 1. Automated exposure control 2. Adjustment of the mA and/or kV according to patient size 3. Use of iterative reconstruction technique Electronically signed by: Taylor Zavala III, MD (09/12/2019 2:09 AM) [id number] DICTATED AND SIGNED BY: TAYLOR ZAVALA III, MD DATE: 09/12/19 020 CC: YU LEE DO; SAAD MOURA MD ~ [][place] [address] IMAGING REPORT Signed PATIENT: MEHNAZ HANNON BACCOUNT: [id number] : 1960 LOCATION: ER AGE: 58 SEX: F EXAM STATUS: PRE ER ORD. PHYSICIAN: SAAD MOURA MD REASON: cough, cp PROCEDURE: CHEST PA & LATERAL CHEST PA LATERAL Technique: PA and lateral views of the chest were obtained. Clinical History: Chest pain and cough Comparison: July 03, 2017. Findings: The heart and pulmonary vasculature appear within normal limits. There are few linear and reticular opacities in the lower lungs. The pleural margins are clear. Impression: Mild chronic pulmonary fibrosis. Stable appearance of the chest. Electronically signed by: Taylor Zavala III, MD (09/11/2019 11:28 PM) [id number] DICTATED AND SIGNED BY: TAYLOR ZAVALA III, MD DATE: 09/11/192327 CC: YU LEE DO; SAAD MOURA MD ~ Course & Med Decision Making Course & Med Decision Making Pertinent Labs and Imaging studies reviewed. (See chart for details) Admit to Dr. Wolfe with Cardiology consult. Heart score 4 Impression: 1. Chest Pain- Chest Wall-Lt. 2. Accelerated HTN 3. Viral Syndrome- Fever 4. Pulmonary Fibrosis and Adenopathy 5. Elevated D-dimer 0,82 6. Hx. Fibromyalgia 7. ? Early- Zoster- Shingles- ( T 5 - Dermatone Lt.)? 8. ? Sarcoid? [] Dragon Disclaimer Dragon Disclaimer This electronic medical record was generated, in whole or in part, using a voice recognition dictation system. Departure Departure: Disposition: HOME/RESIDENCE PRIOR TO ADM Condition: STABLE Referrals: YU LEE DO (PCP) Taryn Disclaimer This chart was dictated in whole or in part using Voice Recognition software in a busy, high-work load, and often noisy Emergency Department environment. It may contain unintended and wholly unrecognized errors or omissions. Dragon Disclaimer This chart was dictated in whole or in part using Voice Recognition software in a busy, high-work load, and often noisy Emergency Department environment. It may contain unintended and wholly unrecognized errors or omissions. SAAD MOURA MD Sep 11, 2019 22:50
--- NOTE | 2019-09-11 23:12 | EKG ---
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
[2019-09-11] MEDS ORDERED: IV RINGERS SOLUTION,LACTATED 1,000 ML IV SCH (23:30)
[2019-09-11] MEDS ORDERED: ASPIRIN 81 MG TAB.CHEW PO ONE (23:30)
[2019-09-11] MEDS ORDERED: predniSONE 10 MG TABLET PO ONE (23:30)
[2019-09-11] MEDS ORDERED: IPRATRPIUM/ALBUTEROL 0.5/2.5MG 3 ML NEBU. NEB ONE (23:30)
--- NOTE | 2019-09-11 23:31 | RAD ---
CHEST PA LATERAL Technique: PA and lateral views of the chest were obtained. Clinical History: Chest pain and cough Comparison: July 03, 2017. Findings: The heart and pulmonary vasculature appear within normal limits. There are few linear and reticular opacities in the lower lungs. The pleural margins are clear. Impression: Mild chronic pulmonary fibrosis. Stable appearance of the chest. Electronically signed by: Randy Campos III, MD (09/11/2019 11:28 PM) [id number]
[2019-09-12 00:14] LABS: BASO # 0.1 x10^3/uL (0.0-0.2); BASO % 1 % (0-3); EOS # 0.1 x10^3/uL (0.0-0.7); EOS % 2 % (0-3); HEMOGLOBIN 13.8 g/dL (12.0-15.5); LYMPH # 0.6 x10^3/uL (1.0-4.8); LYMPH % 7 % (24-48); MEAN CORPUSCULAR HEMOGLOBIN 28 pg (25-35); MEAN CORPUSCULAR HGB CONC 34 g/dL (31-37); MEAN CORPUSCULAR VOLUME 83 fL (79-100); MONO # 0.7 x10^3/uL (0.0-1.1); MONO % 7 % (0-9); NEUT # 7.7 x10^3uL (1.8-7.7); NEUT % 84 % (31-73); PLATELET COUNT 295 x10^3/uL (140-400); RED BLOOD COUNT 4.92 x10^6/uL (3.50-5.40); RED CELL DISTRIBUTION WIDTH 13.8 % (11.5-14.5); WHITE BLOOD COUNT 9.2 x10^3/uL (4.0-11.0)
[2019-09-12 00:20] LABS: CREATININE 0.8 mg/dL (0.6-1.0); GFR 73.9
[2019-09-12 00:21] LABS: BARBITURATES NEG (NEG); BENZODIAZEPINES NEG (NEG); CANNABINOIDS NEG (NEG); COCAINE NEG (NEG); METHADONE NEG (NEG); OPIATES NEG (NEG); PHENCYCLIDINE NEG (NEG)
[2019-09-12 00:25] LABS: AMPHETAMINE/METHAMPHETAMINE NEG (NEG)
[2019-09-12] MEDS ORDERED: KETOROLAC 30 MG/ML VIAL. ONE (00:25)
[2019-09-12 00:30] LABS: BACTERIA,URINE 0 /HPF (0-FEW); BILIRUBIN,URINE NEG (NEG); CLARITY,URINE CLEAR; COLOR,URINE YELLOW; GLUCOSE,URINE NEG (NEG); NITRITE,URINE NEG (NEG); RBC,URINE OCC /HPF (0-2); SQUAMOUS EPITHELIAL CELL,UR OCC /LPF; UROBILINOGEN,URINE 0.2 mg/dL (0.2 mg/dL); WBC,URINE RARE /HPF (0-4)
[2019-09-12 00:32] LABS: ALBUMIN 3.9 g/dL (3.4-5.0); DIRECT BILIRUBIN 0.1 mg/dL (0.0-0.2); MAGNESIUM 1.8 mg/dL (1.8-2.4); TOTAL BILIRUBIN 0.3 mg/dL (0.2-1.0)
[2019-09-12] MEDS ORDERED: KETOROLAC 30 MG/ML VIAL. IVP ONE (00:45)
[2019-09-12 00:47] LABS: INFLUENZA A PATIENT NEGATIVE (NEGATIVE); INFLUENZA B PATIENT NEGATIVE (NEGATIVE)
[2019-09-12] MEDS ORDERED: CONTRAST GIVEN MC PRN (01:45)
[2019-09-12] MEDS ORDERED: ONDANSETRON PF 4 MG/2 ML VIAL. IV PRN (02:00)
[2019-09-12] MEDS ORDERED: IOHEXOL 350 MG/ML 100 ML VIAL. IV ONE (02:00)
--- NOTE | 2019-09-12 02:12 | RAD ---
CTA Chest with contrast: Clinical History: Left chest wall pain and elevated d-dimer tachycardia. Axial helical images of the chest were obtained after the administration of 100 cc of IV Isovue-370 and timed appropriately for a pulmonary arterial study. Conventional axial reconstruction was performed in addition to coronal, sagittal and bilateral oblique MIP (maximum intensity projection). This study was ordered to detect possible pulmonary embolism. FINDINGS: There are no filling defects to suggest pulmonary embolism. Mild groundglass opacities are likely discoid atelectasis. There are small and borderline size enlarged lymph nodes in the wilmer and mediastinum. The thoracic aorta appears normal. Impression: 1. No evidence of pulmonary embolism. 2. Mild lymphadenopathy. This could be secondary to sarcoidosis. PQRS Compliance Statement: One or more of the following individualized dose reduction techniques were utilized for this examination: 1. Automated exposure control 2. Adjustment of the mA and/or kV according to patient size 3. Use of iterative reconstruction technique Electronically signed by: Randy Campos III, MD (09/12/2019 2:09 AM) [id number]
[2019-09-12] MEDS ORDERED: ANTI-COAG MONITOR BY PHARMACY. MC PRN (02:15)
[2019-09-12] MEDS: ENOXAPARIN ** NOTE DOSE ** SYRINGE SQ SCH ×2 (02:49→08:57)
[2019-09-12 04:32] VITALS: BP 158/65
[2019-09-12] MEDS: ACETAMINOPHEN 325 MG TABLET PO PRN ×3 (04:54→19:12)
[2019-09-12] MEDS ORDERED: IBUP800T19 PO (05:22)
[2019-09-12] MEDS: IPRATRPIUM/ALBUTEROL 0.5/2.5MG 3 ML NEBU. NEB SCH ×4 (08:00→18:45)
--- NOTE | 2019-09-12 08:30 | PDOC2 ---
RUPESH KAUR BOND CLERK 09/12/19 0830: CARDIAC CONSULT DATE OF CONSULT Date Of Consult DATE: 09/12/19 TIME: 08:23 REASON FOR CONSULT Reason for Consult chest pain Accelerated HTN REFERRING PHYSICIAN Referring Physician Dr. Deng SOURCE Source: Chart review, Patient HPI History of Present Illness This is a 58 yo female who present secondary to fevers, malaise, chest pain, and elevated blood pressure. Patient reports she started with cold symptoms two days ago. Has had congestion, cough, sore throat, body aches, and fevers. Yesterday, blood pressure was 220/100 and she was having aching pain under her left breast so she came to the ED for further evaluation and treatment. Had some associated nausea, but no shortness of breath, dizziness, or palpitations. Reports history of fibromyalgia. Has chronic pain. Occasionally has pain in her left chest. Not specifically to exertion. Had prior stress test years ago. Family h/o CAD with dad have stents and CABG. PAST MEDICAL HISTORY Past Medical History Lyme disease Cardiovascular: HTN GI: Diverticulosis Psych: Anxiety, Depression Rheumatologic: Fibromyalgia PAST SURGICAL HISTORY Past Surgical History: Appendectomy, Hysterectomy, Tonsillectomy FAMILY HISTORY Family History: Coronary Artery Disease (father ), Hypertension SOCIAL HISTORY Smoke: No ALCOHOL: none Drugs: None Lives: Alone CURRENT MEDICATIONS Current Medications Current Medications Aspirin (Children'S Aspirin) 324 mg 1X ONCE PO Last administered on 09/11/19at 23:30; Start 09/11/19 at 23:30; Stop 09/11/19 at 23:31; Status DC Lactated Ringer's 1,000 ml @ 1,000 mls/hr Q1H IV Last administered on 09/11/19at 23:30; Start 09/11/19 at 23:30; Stop 09/12/19 at 00:29; Status DC Prednisone (Prednisone) 50 mg 1X ONCE PO Last administered on 09/11/19at 23:30; Start 09/11/19 at 23:30; Stop 09/11/19 at 23:31; Status DC Albuterol/ Ipratropium (Duoneb) 3 ml 1X ONCE NEB Last administered on 09/11/19at 23:33; Start 09/11/19 at 23:30; Stop 09/11/19 at 23:31; Status DC Ketorolac Tromethamine (Toradol 30mg Vial) 30 mg STK-MED ONCE .ROUTE ; Start 09/12/19 at 00:25; Stop 09/12/19 at 00:25; Status DC Ketorolac Tromethamine (Toradol 30mg Vial) 30 mg 1X ONCE IVP Last administered on 09/12/19at 00:45; Start 09/12/19 at 00:45; Stop 09/12/19 at 00:46; Status DC Iohexol (Omnipaque 350 Mg/ml) 100 ml 1X ONCE IV Last administered on 09/12/19at 01:40; Start 09/12/19 at 02:00; Stop 09/12/19 at 02:01; Status DC Info (Do NOT chart on this entry -- for MONITORING) 1 each PRN DAILY PRN MC SEE COMMENTS; Start 09/12/19 at 01:45; Stop 09/14/19 at 01:44 Ondansetron HCl (Zofran) 4 mg PRN Q4HRS PRN IV NAUSEA/VOMITING; Start 09/12/19 at 02:00; Stop 09/13/19 at 01:59 Acetaminophen (Tylenol) 650 mg PRN Q4HRS PRN PO FEVER Last administered on 09/12/19at 04:54; Start 09/12/19 at 02:00; Stop 09/13/19 at 01:59 Albuterol/ Ipratropium (Duoneb) 3 ml RTQID NEB ; Start 09/12/19 at 08:00; Stop 09/13/19 at 07:59 Enoxaparin Sodium (Lovenox 120mg Syringe) 120 mg BID SQ Last administered on 09/12/19at 02:49; Start 09/12/19 at 02:30 Aspirin (Children'S Aspirin) 81 mg DAILY PO ; Start 09/12/19 at 09:00 Ketorolac Tromethamine (Toradol 30mg Vial) 30 mg PRN Q12HR PRN IVP MARKED PAIN; Start 09/12/19 at 02:00; Stop 09/17/19 at 01:59 Info (Anti-Coagulation Monitoring By Pharmacy) 1 each PRN DAILY PRN MC SEE COMMENTS; Start 09/12/19 at 02:15 Valacyclovir HCl (Valtrex) 1,000 mg TID PO ; Start 09/12/19 at 09:00 Active Scripts Active Lisinopril 10 Mg Tablet 10 Mg PO DAILY Reported Ibuprofen 800 Mg Tablet 800 Mg PO PRN BID PRN Celexa (Citalopram Hydrobromide) 20 Mg Tablet 1 Tab PO DAILY Lorazepam 0.5 Mg Tablet 1 Tab PO PRN Q6HRS PRN ALLERGIES Allergies: Coded Allergies: ciprofloxacin (Verified Allergy, Severe, 09/12/19) psych issues Nitrofurantoin Macrocrystal (Verified Allergy, Intermediate, 09/12/19) guaifenesin (Verified Allergy, Intermediate, 09/12/19) hydromorphone HCl (Verified Allergy, Intermediate, 09/12/19) morphine (Verified Allergy, Intermediate, 09/12/19) nitrofurantoin (Verified Allergy, Intermediate, 09/12/19) paroxetine HCl (Verified Allergy, Intermediate, 09/12/19) ROS Review of Systems 14 point ROS conducted with pertinent positives noted above in HPI PHYSICAL EXAM General: Alert, Oriented X3, Cooperative, No acute distress HEENT: Atraumatic, Mucous membr. moist/pink Lungs: Clear to auscultation Heart: Regular rate, Normal S1, Normal S2 Abdomen: Soft, No tenderness Extremities: No edema, Normal pulses Skin: No rashes, No breakdown Neuro: Normal speech, Sensation intact Psych/Mental Status: Mental status NL, Mood NL MUSCULOSKELETAL: Osteoarthritic changes both hands VITALS Vital Signs Vital Signs Date Time Temp Pulse Resp B/P (MAP) Pulse Ox O2 Delivery O2 Flow Rate FiO2 09/12/19 04:56 95 Room Air 09/12/19 04:32 97.6 91 20 158/65 (96) LABS LABS Laboratory Tests Test 09/11/19 23:10 09/11/19 23:20 09/11/19 23:23 09/11/19 23:39 White Blood Count 9.2 x10^3/uL (4.0-11.0) Red Blood Count 4.92 x10^6/uL (3.50-5.40) Hemoglobin 13.8 g/dL (12.0-15.5) Hematocrit 41.0 % (36.0-47.0) Mean Corpuscular Volume 83 fL (79-100) Mean Corpuscular Hemoglobin 28 pg (25-35) Mean Corpuscular Hemoglobin Concent 34 g/dL (31-37) Red Cell Distribution Width 13.8 % (11.5-14.5) Platelet Count 295 x10^3/uL (140-400) Neutrophils (%) (Auto) 84 % (31-73) Lymphocytes (%) (Auto) 7 % (24-48) Monocytes (%) (Auto) 7 % (0-9) Eosinophils (%) (Auto) 2 % (0-3) Basophils (%) (Auto) 1 % (0-3) Neutrophils # (Auto) 7.7 x10^3uL (1.8-7.7) Lymphocytes # (Auto) 0.6 x10^3/uL (1.0-4.8) Monocytes # (Auto) 0.7 x10^3/uL (0.0-1.1) Eosinophils # (Auto) 0.1 x10^3/uL (0.0-0.7) Basophils # (Auto) 0.1 x10^3/uL (0.0-0.2) Prothrombin Time 10.2 SEC (9.4-11.4) Prothromb Time International Ratio 1.0 (0.9-1.1) Activated Partial Thromboplast Time 28 SEC (23-33) D-Dimer (Danni) 0.82 mg/L (0.00-0.50) Sodium Level 143 mmol/L (136-145) Potassium Level 4.0 mmol/L (3.5-5.1) Chloride Level 105 mmol/L (98-107) Carbon Dioxide Level 25 mmol/L (21-32) Anion Gap 13 (6-14) Blood Urea Nitrogen 17 mg/dL (7-20) Creatinine 0.8 mg/dL (0.6-1.0) Estimated GFR (Cockcroft-Gault) 73.9 Glucose Level 93 mg/dL (70-99) Calcium Level 9.0 mg/dL (8.5-10.1) Magnesium Level 1.8 mg/dL (1.8-2.4) Total Bilirubin 0.3 mg/dL (0.2-1.0) Direct Bilirubin 0.1 mg/dL (0.0-0.2) Aspartate Amino Transf (AST/SGOT) 15 U/L (15-37) Alanine Aminotransferase (ALT/SGPT) 30 U/L (14-59) Alkaline Phosphatase 79 U/L (46-116) Creatine Kinase 48 U/L (26-192) Troponin I Quantitative < 0.017 ng/mL (0-0.055) AH-Sxd-X-Type Natriuretic Peptide 176 pg/mL (0-124) Total Protein 7.0 g/dL (6.4-8.2) Albumin 3.9 g/dL (3.4-5.0) Lipase 113 U/L (73-393) Influenza Type A (Rapid) Negative (NEGATIVE) Influenza Type B (Rapid) Negative (NEGATIVE) Urine Collection Type Unknown Urine Color Yellow Urine Clarity Clear Urine pH 5.5 Urine Specific [place] <=1.005 Urine Protein Neg (NEG-TRACE) Urine Glucose (UA) Neg mg/dL (NEG) Urine Ketones (Stick) Neg mg/dL (NEG) Urine Blood Mod (NEG) Urine Nitrite Neg (NEG) Urine Bilirubin Neg (NEG) Urine Urobilinogen Dipstick 0.2 mg/dL (0.2 mg/dL) Urine Leukocyte Esterase Neg (NEG) Urine RBC Occ /HPF (0-2) Urine WBC Rare /HPF (0-4) Urine Squamous Epithelial Cells Occ /LPF Urine Bacteria 0 /HPF (0-FEW) Urine Opiates Screen Neg (NEG) Urine Methadone Screen Neg (NEG) Urine Barbiturates Neg (NEG) Urine Phencyclidine Screen Neg (NEG) Urine Amphetamine/Methamphetamine Neg (NEG) Urine Benzodiazepines Screen Neg (NEG) Urine Cocaine Screen Neg (NEG) Urine Cannabinoids Screen Neg (NEG) Urine Ethyl Alcohol Neg (NEG) Group A Streptococcus Rapid Negative (NEGATIVE) Test 09/12/19 06:48 Troponin I Quantitative < 0.017 ng/mL (0-0.055) ASSESSMENT/PLAN Assessment/Plan 1. Fevers, myalgias; influenza negative. Probable acute viral illness 2. Accelerated HTN; now better controlled 3. Chest pain, atypical. AMI ruled out. 4. Elevated d-dimer; CTA negative for PE 5. Fibromyalgia, chronic pain. Recommendations Lipids ASA Resume lisinopril and uptitrate as warranted Echo to assess LV systolic function Consider outpatient stress test given chest pain and risk factors. Follow up in our office with Dr. Mccabe upon discharge KAMALA MCCABE MD 09/13/19 1008: CARDIAC CONSULT ASSESSMENT/PLAN Assessment/Plan Late entry for 09/12/2019 Pt. seen and examined. Agree with above [employer]ENN[employer] COACH note. RUPESH KAUR APRN Sep 12, 2019 08:30 KAMALA MCCABE MD Sep 13, 2019 10:08
[2019-09-12] MEDS: KETOROLAC 30 MG/ML VIAL. IVP PRN ×2 (08:58→09:10)
[2019-09-12] MEDS: valACYclovir 500 MG TABLET. PO SCH ×2 (09:00→14:00)
[2019-09-12] MEDS ORDERED: CITALOPRAM 20 MG TABLET. PO SCH ×2 (09:00→21:00)
[2019-09-12] MEDS ORDERED: ASPIRIN 81 MG TAB.CHEW PO SCH (09:00)
[2019-09-12] MEDS ORDERED: LISINOPRIL 10 MG TABLET PO SCH (09:00)
--- NOTE | 2019-09-12 09:06 | RAD ---
EXAM: Bilateral lower extremity venous Doppler sonogram. HISTORY: Pain and swelling. TECHNIQUE: Anderson scale and color Doppler sonographic evaluation of the bilateral lower extremity veins with spectral waveform analysis was performed. FINDINGS: The exam is limited due to body habitus. There is normal color flow, normal compressibility and there are normal spectral waveforms in the common femoral, superficial femoral, popliteal, posterior tibial and greater saphenous veins. IMPRESSION: No Doppler evidence of lower extremity deep venous thrombosis. Electronically signed by: Debbie Hernandez MD (09/12/2019 9:04 AM) [facility] [place]
[2019-09-12] MEDS: LORazepam 0.5 MG TABLET PO PRN ×2 (09:10→15:13)
[2019-09-12 11:10] VITALS: BP 156/67
[2019-09-12 13:53] LABS: THYROID STIM HORMONE (TSH) 2.538 uIU/mL (0.358-3.740)
[2019-09-12 16:13] VITALS: BP 121/64
--- NOTE | 2019-09-12 18:38 | CARD ---
MR#: [id number] Date of Study: 09/12/2019 Ordering Physician: RUPESH KAUR, Referring Physician: RUPESH KAUR, Tech: Yanique Barton APPROVED REPORT EXAM: Two-dimensional and M-mode echocardiogram with Doppler and color Doppler. Other Information Quality : AverageHR: 73bpm Technically limited study due to body habitus. INDICATION Chest Pain RISK FACTORS Hypertension Previous smoker 2D DIMENSIONS Left Atrium(2D)3.6 (1.6-4.0cm)IVSd0.9 (0.7-1.1cm) Aortic Root(2D)2.8 (2.0-3.7cm)LVDd4.9 (3.9-5.9cm) LVOT Diameter2.1 (1.8-2.4cm)PWd1.0 (0.7-1.1cm) LVDs2.5 (2.5-4.0cm)FS (%) 48.9 % SV89.0 mlLVEF(%)80.2 (>50%) Aortic Valve AoV Peak Gokul.183.4cm/sAoV VTI35.4cm AO Peak GR.13.5mmHgLVOT Peak Gokul.123.5cm/s LVOT VTI 25.94cmAO Mean GR.6mmHg TI (VMAX)2.11wm2HMW (VTI)2.44cm2 Mitral Valve MV E Tlessfta829.0cm/sMV DECEL JUNW182hc MV A Xaikapnu45.8cm/sE/A Ratio1.4 Pulmonary Valve PV Peak Xsvilvmi87.0cm/sPV Peak Grad.4mmHg Tricuspid Valve TR P. Bymtnhle250fj/sRAP YRQQXDVC9gcGr TR Peak Gr.95asEmTIRS88amJe Pulmonary Vein S1 Wbckohlr11.0cm/sD2 Ppawfhks01.7cm/s LEFT VENTRICLE The left ventricle is normal size. There is normal left ventricular wall thickness. The left ventricu lar systolic function is normal. The Ejection Fraction is 60-65%. There is normal LV segmental wall m otion. The left ventricular diastolic function and filling is normal for age. RIGHT VENTRICLE The right ventricle is normal size. There is normal right ventricular wall thickness. The right ventr icular systolic function is normal. ATRIA The left atrium size is normal. The right atrium size is normal. The interatrial septum is intact wit h no evidence for an atrial septal defect or patent foramen ovale as noted on 2-D or Doppler imaging. AORTIC VALVE The aortic valve is normal in structure and function. Doppler and Color Flow revealed no significant aortic regurgitation. There is no significant aortic valvular stenosis. MITRAL VALVE The mitral valve is normal in structure and function. There is no evidence of mitral valve prolapse. There is no mitral valve stenosis. Doppler and Color Flow revealed no mitral valve regurgitation note d. TRICUSPID VALVE The tricuspid valve is normal in structure and function. Doppler and Color Flow revealed trace tricus pid regurgitation with an estimated PAP of 34 mmHg. There is no tricuspid valve stenosis. PULMONIC VALVE The pulmonic valve is not well visualized. Doppler and Color Flow revealed no pulmonic valvular regur gitation. GREAT VESSELS The aortic root is normal in size. The IVC is dilated. PERICARDIAL EFFUSION There is no evidence of significant pericardial effusion. Critical Notification Critical Value: No <Conclusion> The left ventricular systolic function is normal. The Ejection Fraction is 60-65%. There is normal LV segmental wall motion. Trace tricuspid regurgitation with an estimated PAP of 34 mmHg. There is no evidence of significant pericardial effusion. Signed by : Yariel West, Electronically Approved : 09/12/2019 17:09:37
[2019-09-12 19:32] VITALS: BP 153/72
--- NOTE | 2019-09-13 15:14 | SSS ---
ADMIT DATE: 09/12/2019 HISTORY OF PRESENT ILLNESS: The patient is a 58-year-old female patient who came to the Emergency Room complaining of fever, malaise, chest pain and elevated blood pressure. She had started complaining of cold symptoms about 2 days prior to admission; has had congestion, cough, sore throat, body aches and fever. Prior to admission, her blood pressure was 120/100 and she was having aching pain under her left breast, so she came to the Emergency Department for further evaluation and treatment. Has some associated nausea, but no shortness of breath, no dizziness or palpitation. The patient is known to have fibromyalgia, has chronic pain and occasionally has pain in her left chest, not specifically aggravated by exertion. Has had a prior stress test done years ago. She does have a family history of coronary artery disease, and her dad had stents and coronary artery bypass graft. She was evaluated in the Emergency Room and her lab work showed that her troponin was normal, and was admitted to do 2 more sets of cardiac enzymes, check lipid profile and consult the cardiology team. PAST MEDICAL HISTORY: Significant for Lyme disease, hypertension, diverticulosis, anxiety and depression, and fibromyalgia. PAST SURGICAL HISTORY: Significant for appendectomy, hysterectomy and tonsillectomy. FAMILY HISTORY: Significant for coronary artery disease in her father as well as hypertension. SOCIAL HISTORY: She is ; does not smoke, drink alcohol or use any recreational drugs. REVIEW OF SYSTEMS: As in history of present illness. ALLERGIES: SHE IS ALLERGIC TO NITROFURANTOIN MACROCRYSTAL, CIPROFLOXACIN, GUAIFENESIN, HYDROMORPHONE, MORPHINE AND PAROXETINE. MEDICATIONS: She is currently on the following medications; she is on lisinopril 10 mg once a day, ibuprofen 800 mg twice a day, citalopram hydrobromide 20 mg once a day, lorazepam 0.5 mg every 6 hours. PHYSICAL EXAMINATION: GENERAL: On arrival to the Emergency Room, she looked well and was clearly in no apparent respiratory distress. No pallor, jaundice, cyanosis or thyromegaly. No jugular venous distension. No limb edema. VITAL SIGNS: Her heart rate was 97. Her blood pressure was 152/66. Temperature was 100, respiratory rate 22 and oxygen saturation was 98%. HEAD, EYES, EARS, NOSE AND THROAT: Showed normocephalic, atraumatic. NECK: Supple. HEART: Showed normal first and second heart sounds. No gallop or murmur. CHEST: Clear to auscultation. No crepitation or rhonchi. ABDOMEN: Distended, soft, nontender. NEUROLOGIC: She was awake, alert, responding appropriately. All cranial nerves intact. EXTREMITIES: She moves extremities without difficulty. She ambulates without assistance or assistive devices. LABORATORY DATA: Showed a white cell count of 9200, hemoglobin 14, hematocrit 41, MCV 83 and platelet count 295,000. Her chemistry showed serum sodium 143, potassium 4, chloride 105, bicarbonate 25, anion gap of 13, BUN 17, creatinine 0.8. Estimated GFR was 74 mL per minute. Her glucose was 93, calcium was 9, magnesium was 1.8. Total bilirubin, AST, ALT, alkaline phosphatase were normal. Her total protein was 7, albumin was 3.9. She has 2 sets of cardiac enzymes; showed troponin to be less than 0.017. Her lipase was 113. Her fasting lipid profile showed serum triglycerides of 110, total cholesterol 192, LDL was 129, VLDL was 22, HDL was 41 and ratio was 4. Her TSH was 2.58. The prothrombin time, INR and aPTT were normal. D-dimer slightly was elevated. Urinalysis was essentially normal. Toxic screen was essentially negative. Her influenza A and B were negative. Treponema pallidum antibody was nonreactive, and group A streptococcus rapid test was negative. IMAGING: She has had an echocardiogram, which showed that her left ventricular systolic function is normal; ejection fraction was 60% to 65%. She has normal left ventricular segmental wall motion, trace tricuspid regurgitation with an estimated pulmonary artery pressure of 34 mmHg. There is no evidence of significant pericardial effusion. The patient was seen by the Cardiology team and she was basically discharged with a plan to arrange for an outpatient stress test and has an appointment to follow up with the office of Dr. Mccabe upon discharge. DISCHARGE INSTRUCTION: She was discharged home to continue on citalopram hydrobromide, ibuprofen, lisinopril 10 mg once a day and lorazepam 0.5 mg every 6 hours. FINAL DISCHARGE DIAGNOSES: Atypical chest pain, myocardial infarction ruled out; hypertension, fibromyalgia, anxiety and depression. ELENA ANNA MD DR: SPENCER/binh JOB#: [id number] / [id number]
== END 2019-09-12 19:30 | disposition home or self-care (01) ==
LOC: ER 22:43 → INTOOBSV 09-12 01:30 → 1 SOUTH 09-12 01:30
PROVIDERS: ADMIT Internal Medicine; ATTEND Internal Medicine
DX: R07.89 Other chest pain (principal); I10 Essential (primary) hypertension; M79.7 Fibromyalgia; F41.8 Other specified anxiety disorders; J84.10 Pulmonary fibrosis, unspecified; B34.9 Viral infection, unspecified; R79.89 Other specified abnormal findings of blood chemistry; R50.9 Fever, unspecified; G89.29 Other chronic pain; Z79.899 Other long term (current) drug therapy; Z90.710 Acquired absence of both cervix and uterus; Z90.49 Acquired absence of other specified parts of digestive tract
CPT/HCPCS: 36415; 71046; 71275; 80048; 80061; 80076; 80307; 81001; 82164; 82550; 83690; 83735; 83880; 84443; 84484; 85025; 85379; 85610; 85730; 86592; 86617; 86618; 87040; 87070; 87804; 87880; 93005; 93306; 93970; 94640; 96372; 96374; 96376; 99284; G0238; G0378; J1650; J1885; J7120; J7512; J7620; Q9967; 96361; 96375; G0379; 99285-25

== ENCOUNTER 2020-02-22 04:22 | Emergency (ER) | payer OTHER ==
[~2020-02-22] VITALS: Ht 172.7 cm; Wt 133.0 kg
[~2020-02-22 04:22] MED LIST changes: +IBUP800T19 PO
[2020-02-22 04:28] VITALS: BP 180/106
--- NOTE | 2020-02-22 04:46 | PHYS DOC ---
Past History Past Medical History: Anxiety, Arthritis, Bronchitis, Diverticulitis, Fibromyalgia, High Cholesterol, Hypertension, Other Additional Past Medical Histor: Lyme's disease; interstitial cyctitis Past Surgical History: Appendectomy, Hysterectomy, Tonsillectomy Smoking: Quit Greater Than 1 Year Alcohol Use: Rarely Drug Use: None General Adult EDM: Chief Complaint: CHEST PAIN HPI: HPI: 59-year-old female presents with report of substernal chest pain that started at 0330 this morning. Patient also noted her blood pressure was elevated to 190s over 95. Patient reports yesterday had subjective fever/chills and generalized malaise. Reports associated nausea/vomiting/diarrhea. Patient reports traveling to [place] 1 week ago to attend a hoahaoism meeting. Reports there was singing involved. Patient reports she is aware of actual exposure to COVID-19. Denies trauma. Reports did have some previous left lower quadrant abdominal pain. Reports took 4 baby aspirin prior to arrival. Patient also took 1 mg of lorazepam as patient has history of anxiety and fibromyalgia. Cardiac risk factors of former smoking, high blood pressure, and high cholesterol. Review of Systems: Review of Systems: Constitutional: Reports subjective fever/chills and generalized malaise Eyes: Denies redness or eye pain HENT: Denies nasal congestion or sore throat Respiratory: Denies cough or shortness of breath Cardiovascular: Reports chest pain; denies palpitations GI: Reports abdominal pain, nausea, vomiting, and diarrhea : Denies dysuria or hematuria Musculoskeletal: Denies back pain or joint pain Integument: Denies rash or skin lesions Neurologic: Denies headache, focal weakness or sensory changes Complete systems were reviewed and found to be within normal limits, except as documented in this note. Heart Score: HEART Score for Chest Pain: HEART Score for Chest Pain Response (Comments) Value History Moderately Suspicious 1 ECG Normal 0 Age >45 - < 65 1 Risk Factors >3 Risk Factors or Hx CAD 2 Troponin < Normal Limit 0 Total 4 Risk Factors: Risk Factors: DM, Current or recent (<one month) smoker, HTN, HLP, family history of CAD, obesity. Risk Scores: Score 0 - 3: 2.5% MACE over next 6 weeks - Discharge Home Score 4 - 6: 20.3% MACE over next 6 weeks - Admit for Clinical Observation Score 7 - 10: 72.7% MACE over next 6 weeks - Early Invasive Strategies Allergies: Allergies: Allergies Coded Allergies Type Severity Reaction Last Updated Verified ciprofloxacin Allergy Severe 09/12/19 Yes Nitrofurantoin Macrocrystal Allergy Intermediate 09/12/19 Yes guaifenesin Allergy Intermediate 09/12/19 Yes hydromorphone HCl Allergy Intermediate 09/12/19 Yes morphine Allergy Intermediate 09/12/19 Yes nitrofurantoin Allergy Intermediate 09/12/19 Yes paroxetine HCl Allergy Intermediate 09/12/19 Yes Physical Exam: PE: Constitutional: Well developed, well nourished, no acute distress, non-toxic appearance HENT: Normocephalic, atraumatic Eyes: Conjunctiva normal, no discharge Neck: Normal range of motion, no tenderness, supple Lungs & Thorax: No respiratory distress, equal chest rise and fall Abdomen: Soft, mild LLQ abdominal pain, mild guarding Skin: Warm, dry, no erythema, no rash Extremities: No tenderness, ROM intact, no edema Neurologic: Alert and oriented X 3, no focal deficits noted Psychologic: Affect normal, judgment normal Current Patient Data: Vital Signs: Vital Signs Date Time Temp Pulse Resp B/P (MAP) Pulse Ox O2 Delivery O2 Flow Rate FiO2 02/22/20 04:28 98.0 79 20 180/106 (130) 99 Room Air EKG: EKG: @0437 NSR at 68bpm, NO ST elevation, QRS 84ms, QT/QTc 404/434ms Radiology/Procedures: Radiology/Procedures: [] Course & Med Decision Making: Course & Med Decision Making Pertinent Labs and Imaging studies reviewed. (See chart for details) Patient presents with report of substernal chest pain, elevated blood pressure to 190s/90s, and N/V/D. Patient had taken 324mg of ASA prior to arrival. Hx of recent travel. Cannot exclude COVID-19. Patient with history of chest pain admission in Sep 2019 per [facility] review. EKG stable. Labs obtained and posted to chart. Troponin WNL. WBC and lactic acid WNL. D-dimer elevated. CTA chest and CT abd/pelvis w/contrast pending. Redraw troponin also scheduled for 629. Sign out given to Dr. Roberts for further evaluation and final disposition. Discussed current findings and plan with patient, who acknowledges understanding and agreement. COVID-19 CRITERIA: The patient was evaluated during the global COVID-19 pandemic, and that diagnosis was suspected/considered upon their initial presentation. Their evaluation, treatment and testing was consistent with current guidelines for patients who present with complaints or symptoms that may be related to COVID-19. Taryn Disclaimer: Taryn Disclaimer: This electronic medical record was generated, in whole or in part, using a voice recognition dictation system. Departure Departure: Impression: Primary Impression: Chest pain Qualified Codes: R07.9 - Chest pain, unspecified Additional Impressions: Nausea vomiting and diarrhea Suspected 2019 novel coronavirus infection Referrals: GUILLE MURCIA (PCP) Justification of Admission: Justification of Admission: Justification of Admission Dx: N/A COVID-19 Assessment COVID-19 Patient Risks: Age 65 or older: No Sign of co-morbidity: Yes Exp to person + for COVID: No Exp to PUI: No Travel from affected area: Yes Lower respiratory symptoms: No Fever: Yes PPE Use: Full PPE with N95 mask or PAPR: Yes АЛЕКСАНДР OAKES DO Feb 22, 2020 04:46
[2020-02-22 05:08] LABS: BASO # 0.1 x10^3/uL (0.0-0.2); BASO % 1 % (0-3); EOS # 0.3 x10^3/uL (0.0-0.7); EOS % 3 % (0-3); HEMATOCRIT 41.7 % (36.0-47.0); HEMOGLOBIN 13.9 g/dL (12.0-15.5); LYMPH # 2.7 x10^3/uL (1.0-4.8); LYMPH % 26 % (24-48); MEAN CORPUSCULAR HEMOGLOBIN 29 pg (25-35); MEAN CORPUSCULAR HGB CONC 33 g/dL (31-37); MEAN CORPUSCULAR VOLUME 85 fL (79-100); MONO # 0.7 x10^3/uL (0.0-1.1); MONO % 7 % (0-9); NEUT # 6.6 x10^3uL (1.8-7.7); NEUT % 64 % (31-73); PLATELET COUNT 293 x10^3/uL (140-400); RED BLOOD COUNT 4.88 x10^6/uL (3.50-5.40); RED CELL DISTRIBUTION WIDTH 13.5 % (11.5-14.5); WHITE BLOOD COUNT 10.3 x10^3/uL (4.0-11.0)
[2020-02-22 05:15] LABS: CALCIUM 9.3 mg/dL (8.5-10.1); CREATININE 1.1 mg/dL (0.6-1.0); POTASSIUM 3.4 mmol/L (3.5-5.1)
[2020-02-22] MEDS ORDERED: FAMOTIDINE 20 MG/2 ML VIAL IVP ONE (05:15)
[2020-02-22] MEDS ORDERED: IV NORMAL SALINE 1,000ML 1,000 ML IV ONE (05:15)
[2020-02-22] MEDS ORDERED: ONDANSETRON PF 4 MG/2 ML VIAL. IVP ONE (05:30)
[2020-02-22 05:31] LABS: ALBUMIN/GLOBULIN RATIO 1.1 (1.0-1.7); MAGNESIUM 2.1 mg/dL (1.8-2.4); TOTAL BILIRUBIN 0.4 mg/dL (0.2-1.0); TOTAL PROTEIN 7.8 g/dL (6.4-8.2)
[2020-02-22 05:51] LABS: BACTERIA,URINE 0 /HPF (0-FEW); BILIRUBIN,URINE NEG (NEG); CLARITY,URINE CLEAR; COLOR,URINE COLORLESS; GLUCOSE,URINE NEG (NEG); NITRITE,URINE NEG (NEG); RBC,URINE OCC /HPF (0-2); SQUAMOUS EPITHELIAL CELL,UR OCC /LPF; UROBILINOGEN,URINE 0.2 mg/dL (0.2 mg/dL); WBC,URINE OCC /HPF (0-4)
[2020-02-22] MEDS ORDERED: KETOROLAC 15 MG/ML VIAL. ONE (06:07)
[2020-02-22] MEDS ORDERED: CONTRAST GIVEN MC PRN (06:15)
--- NOTE | 2020-02-22 06:25 | EKG ---
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
[2020-02-22] MEDS ORDERED: IOHEXOL 350 MG/ML 100 ML VIAL. IV ONE (06:30)
[2020-02-22] MEDS ORDERED: KETOROLAC 15 MG/ML VIAL. IVP ONE (06:30)
--- NOTE | 2020-02-22 06:55 | RAD ---
CTA scan of the Chest with Contrast (Pulmonary Embolism protocol) 02/22/2020 Clinical History: Chest pain. Elevated d-dimer. Technique: After the intravenous administration of 75 cc of Omnipaque 350, contiguous, 0.625 mm axial sections were obtained through the chest. 2 mm axial and 3D MIP coronal and sagittal reconstructed images were obtained. One or more of the following individualized dose reduction techniques were utilized for this study: 1. Automated exposure control. 2. Adjustment of the mA and/or kV according to patient size. 3. Use of iterative reconstruction technique. Findings: Comparison study is dated 09/12/2019. No filling defect is seen within the major branches of either pulmonary artery. There is no CT evidence of pulmonary embolism. The heart is mildly enlarged. Atherosclerotic calcification thoracic aorta is seen. Prominent hilar mediastinal lymph nodes are again seen, unchanged. Minimal dependent subsegmental atelectasis is seen involving both lungs. No area of consolidation, pleural effusion or pneumothorax is seen. Impression: There is no CT evidence of pulmonary embolism. CT scan of the abdomen and pelvis with contrast 02/22/2020. CLINICAL HISTORY: Left lower quadrant abdominal pain with nausea and vomiting TECHNIQUE: After the intravenous administration of 75 cc of Omnipaque 350 only, contiguous, 3 mm axial sections were obtained through the abdomen and pelvis. One or more of the following individualized dose reduction techniques were utilized for this study: 1. Automated exposure control. 2. Adjustment of the mA and/or kV according to patient size. 3. Use of iterative reconstruction technique. FINDINGS: Comparison study is dated 08/20/2018. Images through the lung bases demonstrate mild cardiomegaly. Dependent subsegmental atelectasis is seen involving both lower lobes. The liver, spleen, pancreas, adrenal glands and kidneys are within normal limits. Atherosclerotic calcification abdominal aorta is seen. The abdominal aorta tapers normally. The gallbladder is slightly contracted. No free fluid or free air is seen within the abdomen. There is no evidence of bowel obstruction. The appendix is not visualized. No inflammatory changes are seen surrounding the cecum. Multiple diverticula are seen involving the sigmoid colon. No inflammatory changes are seen adjacent fat. Images through the pelvis demonstrate the urinary bladder to be slightly contracted. No adnexal mass is seen. Calcifications are seen within the pelvis consistent with phleboliths. No free fluid is noted. Very mild S-shaped curvature of the thoracolumbar spine is seen. Degenerative changes are seen involving the lower thoracic and mid and lower lumbar spine. IMPRESSION: No acute abnormality is seen. Electronically signed by: Keaton Vyas MD (02/22/2020 6:52 AM) [id number]
--- NOTE | 2020-02-25 10:59 | NUR ---
IP: discussed COVID results with patient.
== END 2020-02-22 07:24 | disposition home or self-care (01) ==
LOC: ER 04:22
DX: R07.2 Precordial pain (principal); R11.2 Nausea with vomiting, unspecified; Z20.828 Contact with and (suspected) exposure to other viral communicable diseases; R19.7 Diarrhea, unspecified; R10.32 Left lower quadrant pain; F41.9 Anxiety disorder, unspecified; M19.90 Unspecified osteoarthritis, unspecified site; M79.7 Fibromyalgia; E78.00 Pure hypercholesterolemia, unspecified; I10 Essential (primary) hypertension; Z90.89 Acquired absence of other organs; Z90.710 Acquired absence of both cervix and uterus; Z87.891 Personal history of nicotine dependence; Z88.1 Allergy status to other antibiotic agents; Z88.5 Allergy status to narcotic agent; Z88.8 Allergy status to other drugs, medicaments and biological substances
CPT/HCPCS: 36415; 71275; 74177; 80053; 81001; 82553; 82728; 83605; 83615; 83690; 83735; 83880; 84484; 85025; 85379; 85610; 85730; 93005; 96361; 96374; 96375; 99285; J1885; J2405; J3490; J7030; Q9967; U0003

== ENCOUNTER → 2021-03-17 | Outpatient (CLI) | payer OTHER ==
[~2021-03-17] MED LIST changes: +LISI10TA16 PO; -LISI10TA2 PO
--- NOTE | 2021-03-19 17:29 | RAD ---
EXAM: BILATERAL DIGITAL 3D SCREENING MAMMOGRAPHY. HISTORY: Routine mammographic screening. TECHNIQUE: Bilateral digital 3D and tomographic images were obtained in CC and MLO projections. Compu ter-aided detection was applied. COMPARISON: None available. This is interpreted as a baseline study. COMPOSITION: B. There are scattered areas of fibroglandular density. FINDINGS: A circumscribed/obscured nodule just superior to the nipple line in the anterior third on t he left does not have a clear correlate on the CC projection. This is best seen on tomosynthesis. See annotations. There is no suspicious finding on the right. BI-RADS CATEGORY 0: Incomplete--Needs Additional Imaging Evaluation. RECOMMENDATION: 1. Sonography of the left superior periareolar region to assess a small obscured nodule at baseline. Electronically signed by: Tyson Peralta MD (03/19/2021 5:27 PM) [id number]
== END ==
LOC: MAMMO 14:56
PROVIDERS: ATTEND Physician Assistant
DX: Z12.31 Encounter for screening mammogram for malignant neoplasm of breast (principal)
CPT/HCPCS: 77063; 77067

== ENCOUNTER → 2021-03-31 | Outpatient (CLI) | payer OTHER ==
--- NOTE | 2021-03-31 13:20 | RAD ---
EXAM: Left breast sonogram. HISTORY: 60-year-old female presents for evaluation of a nodule within the left breast demonstrated o n a screening mammogram dated 03/18/2021. TECHNIQUE: Sonographic imaging of the left breast targeted to the site of mammographic nodularity was performed. COMPARISON: 03/17/2021. FINDINGS: There is a small simple cyst measuring 6 mm at the 12:00 position 4 cm from the nipple, cor responding with the mammographic finding of concern. There is no suspicious sonographic finding. IMPRESSION: 1. Small benign cyst measuring 6 mm at the 12:00 position 4 cm from the nipple, corresponding with th e mammographic finding of concern. 2. No persistent suspicious mammographic or sonographic finding. 3. BI-RADS Category 2: Benign finding(s). Annual mammography is recommended. Electronically signed by: Debbie Hernandez MD (03/31/2021 1:18 PM) [id number]
== END ==
LOC: US 13:00
PROVIDERS: ATTEND Physician Assistant
DX: N60.02 Solitary cyst of left breast (principal)
CPT/HCPCS: 76642

== ENCOUNTER → 2021-05-21 | Outpatient (CLI) | payer OTHER ==
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
== END ==
LOC: CT 11:30
PROVIDERS: ATTEND Physician Assistant
DX: R51.9 Headache, unspecified (principal)
CPT/HCPCS: 70450

== ENCOUNTER 2021-07-26 11:40 | Emergency (ER) | payer OTHER ==
[~2021-07-26] VITALS: Ht 172.7 cm; Wt 133.0 kg
[~2021-07-26 11:40] MED LIST changes: -CYCL-331 PO; +CYCL10TA19 PO
[2021-07-26 12:08] VITALS: BP 147/90
--- NOTE | 2021-07-26 12:17 | PHYS DOC ---
Past History Past Medical History: Anxiety, Arthritis, Bronchitis, Diverticulitis, Fibromyalgia, High Cholesterol, Hypertension, Other Additional Past Medical Histor: Lyme's disease; interstitial cyctitis Past Surgical History: Appendectomy, Hysterectomy, Tonsillectomy Smoking: Quit Greater Than 1 Year Alcohol Use: Rarely Drug Use: None General Adult EDM: Chief Complaint: FATIGUE HPI: HPI: 60-year-old female presents with body aches, fatigue for the last 5 days. The patient felt like she was more clammy today and maybe had periods of an elevated heart rate. She has not really had a significant cough. She denies shortness of breath but is concerned about her lungs. She has not been tested for COVID- 19. Her has had similar symptoms but he is getting better. Patient had a fever of 100.5 two days ago but that seems to have resolved. Review of Systems: Review of Systems: Constitutional: Fever, body aches, chills, fatigue. Eyes: Denies change in visual acuity HENT: Denies nasal congestion or sore throat Respiratory: Denies cough or shortness of breath Cardiovascular: Denies chest pain or edema GI: Denies abdominal pain, nausea, vomiting, bloody stools or diarrhea : Denies dysuria Musculoskeletal: Denies back pain or joint pain Integument: Denies rash Neurologic: Denies headache, focal weakness or sensory changes Endocrine: Denies polyuria or polydipsia Lymphatic: Denies swollen glands Psychiatric: Denies depression or anxiety Allergies: Allergies: Allergies Coded Allergies Type Severity Reaction Last Updated Verified ciprofloxacin Allergy Severe 09/12/19 Yes Nitrofurantoin Macrocrystal Allergy Intermediate 09/12/19 Yes guaifenesin Allergy Intermediate 09/12/19 Yes hydromorphone HCl Allergy Intermediate 09/12/19 Yes morphine Allergy Intermediate 09/12/19 Yes nitrofurantoin Allergy Intermediate 09/12/19 Yes paroxetine HCl Allergy Intermediate 09/12/19 Yes Physical Exam: PE: Constitutional: Well developed, well nourished, obese, no acute distress, non- toxic appearance. [] HENT: Normocephalic, atraumatic, bilateral external ears normal, oropharynx jaden st, no oral exudates, nose normal. [] Eyes: PERRLA, EOMI, conjunctiva normal, no discharge. [] Neck: Normal range of motion, no tenderness, supple, no stridor. [] Cardiovascular: Heart rate regular rhythm, no murmur [] Lungs & Thorax: Bilateral breath sounds clear to auscultation [] Abdomen: Bowel sounds normal, soft, no tenderness, no masses, no pulsatile masses. [] Skin: Warm, dry, no erythema, no rash. [] Back: No tenderness, no CVA tenderness. [] Extremities: No tenderness, no cyanosis, no clubbing, ROM intact, no edema. [] Neurologic: Alert and oriented X 3, normal motor function, normal sensory function, no focal deficits noted. [] Psychologic: Affect normal, judgement normal, mood normal. [] EKG: EKG: [] Radiology/Procedures: Radiology/Procedures: [] Heart Score: C/O Chest Pain: N/A Risk Factors: Risk Factors: DM, Current or recent (<one month) smoker, HTN, HLP, family history of CAD, obesity. Risk Scores: Score 0 - 3: 2.5% MACE over next 6 weeks - Discharge Home Score 4 - 6: 20.3% MACE over next 6 weeks - Admit for Clinical Observation Score 7 - 10: 72.7% MACE over next 6 weeks - Early Invasive Strategies Course & Med Decision Making: Course & Med Decision Making Pertinent Labs and Imaging studies reviewed. (See chart for details) The patient's labs are unremarkable. Her EKG was negative for acute findings. Troponin is normal. Chest x-ray is negative for acute findings. Patient's influenza is negative. This could be COVID-19 or another viral illness. I advised the patient isolate at home until she gets her results. She should stay well-hydrated and get some rest. She can use Tylenol and ibuprofen as needed. She is stable for discharge at this time. [] Dragon Disclaimer: Dragon Disclaimer: This electronic medical record was generated, in whole or in part, using a voice recognition dictation system. Departure Departure: Impression: Primary Impression: Viral syndrome Disposition: HOME / SELF CARE / HOMELESS Condition: STABLE Referrals: GUILLE MURCIA (PCP) Patient Instructions: Viral Syndrome DARINEL MITCHELL DO Jul 26, 2021 12:17
[2021-07-26 12:39] LABS: BASO # 0.1 x10^3/uL (0.0-0.2); BASO % 1 % (0-3); EOS # 0.1 x10^3/uL (0.0-0.7); EOS % 1 % (0-3); HEMATOCRIT 44.3 % (36.0-47.0); HEMOGLOBIN 14.6 g/dL (12.0-15.5); LYMPH # 1.9 x10^3/uL (1.0-4.8); LYMPH % 26 % (24-48); MEAN CORPUSCULAR HEMOGLOBIN 28 pg (25-35); MEAN CORPUSCULAR HGB CONC 33 g/dL (31-37); MEAN CORPUSCULAR VOLUME 85 fL (79-100); MONO # 0.6 x10^3/uL (0.0-1.1); MONO % 8 % (0-9); NEUT # 4.5 x10^3uL (1.8-7.7); NEUT % 63 % (31-73); PLATELET COUNT 262 x10^3/uL (140-400); RED BLOOD COUNT 5.24 x10^6/uL (3.50-5.40); RED CELL DISTRIBUTION WIDTH 13.8 % (11.5-14.5)
[2021-07-26 12:53] LABS: CALCIUM 8.7 mg/dL (8.5-10.1); CREATININE 0.9 mg/dL (0.6-1.0); GFR 64.1; POTASSIUM 4.3 mmol/L (3.5-5.1)
[2021-07-26 12:56] LABS: INFLUENZA A PATIENT NEGATIVE (NEGATIVE); INFLUENZA B PATIENT NEGATIVE (NEGATIVE)
[2021-07-26 12:59] LABS: ALBUMIN 3.9 g/dL (3.4-5.0); ALBUMIN/GLOBULIN RATIO 1.2 (1.0-1.7); TOTAL BILIRUBIN 0.4 mg/dL (0.2-1.0); TOTAL PROTEIN 7.1 g/dL (6.4-8.2)
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
[2021-07-26 13:31] LABS: BILIRUBIN,URINE NEG (NEG); CLARITY,URINE CLEAR; COLOR,URINE YELLOW; GLUCOSE,URINE NEG (NEG)
[2021-07-26 13:32] LABS: BACTERIA,URINE 0 /HPF (0-FEW); NITRITE,URINE NEG (NEG); RBC,URINE OCC /HPF (0-2); UROBILINOGEN,URINE 0.2 mg/dL (0.2 mg/dL); WBC,URINE 0 /HPF (0-4)
--- NOTE | 2021-07-26 14:24 | EKG ---
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
== END 2021-07-26 13:56 | disposition home or self-care (01) ==
LOC: ER 11:40
DX: U07.1 COVID-19 (principal); B34.9 Viral infection, unspecified; M19.90 Unspecified osteoarthritis, unspecified site; M79.7 Fibromyalgia; E78.00 Pure hypercholesterolemia, unspecified; I10 Essential (primary) hypertension; Z87.891 Personal history of nicotine dependence; Z88.1 Allergy status to other antibiotic agents; Z88.5 Allergy status to narcotic agent; Z88.8 Allergy status to other drugs, medicaments and biological substances
CPT/HCPCS: 71045; 80053; 81001; 84484; 85025; 87804; 93005; 99285; C9803; U0003

== ENCOUNTER 2021-12-10 20:17 | Emergency (ER) | payer OTHER ==
[~2021-12-10] VITALS: Ht 172.7 cm; Wt 140.7 kg
[2021-12-10 20:28] VITALS: BP 147/90
--- NOTE | 2021-12-10 20:52 | PHYS DOC ---
Past History Past Medical History: Anxiety, Arthritis, Bronchitis, Diverticulitis, Fibromyalgia, High Cholesterol, Hypertension, Other Additional Past Medical Histor: Lyme's disease; interstitial cyctitis Past Surgical History: Appendectomy, Hysterectomy, Tonsillectomy Smoking: Quit Greater Than 1 Year Alcohol Use: None Drug Use: None General Adult EDM: Chief Complaint: CONGESTION HPI: HPI: Patient is a 61-year-old female who is here with 2-week history of intermittent coughing, occasionally with clear sputum production. She reports congestion and postnasal drip as well as rhinorrhea and sneezing. She has not taken any [id number] cough or cold medications to help with the symptoms. She denies fevers or chills. She denies chest pain, dyspnea, wheezing. She denies abdominal pain, nausea, vomiting, diarrhea. She is eating and drinking well. She denies any known sick contacts. She denies travel history. Denies recent hospitalization. Denies lower extremity pain or swelling. Denies hemoptysis. Review of Systems: Review of Systems: As per HPI Allergies: Allergies: Allergies Coded Allergies Type Severity Reaction Last Updated Verified ciprofloxacin Allergy Severe 12/10/21 Yes Nitrofurantoin Macrocrystal Allergy Intermediate 12/10/21 Yes guaifenesin Allergy Intermediate 12/10/21 Yes hydromorphone HCl Allergy Intermediate 12/10/21 Yes morphine Allergy Intermediate 12/10/21 Yes nitrofurantoin Allergy Intermediate 12/10/21 Yes paroxetine HCl Allergy Intermediate 12/10/21 Yes amoxicillin Allergy Unknown 12/10/21 Yes clavulanic acid Allergy Unknown 12/10/21 Yes Physical Exam: PE: Constitutional: Well developed, well nourished, no acute distress, non-toxic appearance. [] HENT: Normocephalic, atraumatic, oropharynx is patent and clear, mucous membranes are moist. No erythema, no exudate. External ears are normal bilaterally. TMs are clear bilaterally Eyes: PERRL, EOMI, conjunctiva normal, no discharge, sclera anicteric Neck: Normal range of motion, no tenderness, supple, no stridor. No meningismus. Cardiovascular:Heart rate regular rhythm, + 2 radial pulses and +2 PT pulses bilaterally Lungs & Thorax: Bilateral breath sounds clear to auscultation, no rales, rhonchi or wheezes. No stridor. No respiratory distress. Abdomen: Abdomen is soft, nondistended, nontender to palpation. No CVA tenderness. Skin: Warm, dry, no erythema, no rash. [] Back: No tenderness, no CVA tenderness. [] Extremities: No tenderness, no cyanosis, no clubbing, ROM intact, no edema. No calf tenderness. Neurologic: Alert and oriented X 3, normal motor function, normal sensory function, no focal deficits noted. [] Psychologic: Affect normal, judgement normal, mood normal. [] Current Patient Data: Vital Signs: Vital Signs Date Time Temp Pulse Resp B/P (MAP) Pulse Ox O2 Delivery O2 Flow Rate FiO2 12/10/21 20:28 98.2 82 18 147/90 (109) 95 Room Air EKG: EKG: [] Radiology/Procedures: Radiology/Procedures: IMAGING REPORT Signed PATIENT: MEHNAZ HANNON BACCOUNT: [id number] : 1960 LOCATION: ER AGE: 61 SEX: F EXAM STATUS: REG ER ORD. PHYSICIAN: KAMINI BRYAN DO REASON: cough PROCEDURE: CHEST PA & LATERAL Exam: Chest 2 views INDICATION: Cough, pain TECHNIQUE: Frontal and lateral views the chest Comparisons: 07/26/2021 FINDINGS: The cardiomediastinal silhouette and pulmonary vessels are within normal limits. The lung and pleural spaces are clear. IMPRESSION: No acute cardiopulmonary process. Electronically signed by: Kareen Kan MD (12/10/2021 9:40 PM) [facility] DICTATED AND SIGNED BY: KAREEN KAN MD DATE: 12/10/212138 CC: KAMINI BRYAN DO; GUILLE MURCIA PA ~ Heart Score: C/O Chest Pain: No Risk Factors: Risk Factors: DM, Current or recent (<one month) smoker, HTN, HLP, family history of CAD, obesity. Risk Scores: Score 0 - 3: 2.5% MACE over next 6 weeks - Discharge Home Score 4 - 6: 20.3% MACE over next 6 weeks - Admit for Clinical Observation Score 7 - 10: 72.7% MACE over next 6 weeks - Early Invasive Strategies Course & Med Decision Making: Course & Med Decision Making Pertinent Labs and Imaging studies reviewed. (See chart for details) P.rosalba. Na Live are given here. I discussed the findings, differential diagnosis and plan of care. No indication for antibiotics. Chest x-ray is clear. Exam is unremarkable. I recommend cessation of tobacco. Home care instructions are given. I recommend she contact her PCP for follow-up. Return precautions are given. She verbalizes understanding. Taryn Disclaimer: Taryn Disclaimer: This electronic medical record was generated, in whole or in part, using a voice recognition dictation system. Departure Departure: Impression: Primary Impression: Upper respiratory infection Qualified Codes: J06.9 - Acute upper respiratory infection, unspecified Additional Impression: Cough Disposition: HOME / SELF CARE / HOMELESS Condition: STABLE Referrals: GUILLE MURCIA (PCP) Patient Instructions: Upper Respiratory Infection, Adult Additional Instructions: Use the cough medicine and decongestant medication as needed/as directed. Return to the ER for severe chest pain, shortness of breath, wheezing, uncontrolled vomiting, dehydration or other concerns. You most likely have a viral illness. There is no evidence of pneumonia. Contact your primary care doctor for follow-up. Scripts Loratadine (CLARITIN) 10 Mg Capsule 1 CAP PO DAILY for allergy symptoms, #30 CAP 0 Refills Prov: KAMINI BRYAN DO 12/10/21 Fluticasone Propionate (Flonase Allergy Relief) 9.9 Ml [place].susp 2 SPRAYS NS DAILY for nasal congestion, #16 GM 0 Refills Prov: KAMINI BRYAN DO 12/10/21 Benzonatate (BENZONATATE) 200 Mg Capsule 1 CAP PO PRN TID PRN for cough, #20 CAP 0 Refills Prov: KAMINI BRYAN DO 12/10/21 KAMINI BRYAN DO December 10, 2021 20:52
[2021-12-10] MEDS ORDERED: BENZONATATE 100 MG CAPSULE. PO ONE (21:30)
--- NOTE | 2021-12-10 21:42 | RAD ---
Exam: Chest 2 views INDICATION: Cough, pain TECHNIQUE: Frontal and lateral views the chest Comparisons: 07/26/2021 FINDINGS: The cardiomediastinal silhouette and pulmonary vessels are within normal limits. The lung and pleural spaces are clear. IMPRESSION: No acute cardiopulmonary process. Electronically signed by: Kareen Barros MD (12/10/2021 9:40 PM) [facility]
[2021-12-10 21:48] LABS: INFLUENZA A PATIENT NEGATIVE (NEGATIVE); INFLUENZA B PATIENT NEGATIVE (NEGATIVE)
[2021-12-10] MEDS ORDERED: BENZ200C47 PO (22:01)
[2021-12-10] MEDS ORDERED: LORA10CA PO (22:02)
[2021-12-10] MEDS ORDERED: FLUT9.9S NS (22:02)
== END 2021-12-10 22:06 | disposition home or self-care (01) ==
LOC: ER 20:17
DX: J06.9 Acute upper respiratory infection, unspecified (principal); F41.9 Anxiety disorder, unspecified; M19.90 Unspecified osteoarthritis, unspecified site; M79.7 Fibromyalgia; E78.00 Pure hypercholesterolemia, unspecified; I10 Essential (primary) hypertension; Z20.822 Contact with and (suspected) exposure to COVID-19; Z87.891 Personal history of nicotine dependence; Z88.1 Allergy status to other antibiotic agents; Z88.5 Allergy status to narcotic agent; Z88.8 Allergy status to other drugs, medicaments and biological substances
CPT/HCPCS: 71046; 87428; 99284